=== PATIENT | male | born 1955 | race Caucasian/White ===

== ENCOUNTER 2019-04-05 23:01 | Inpatient (IN) | payer OTHER ==
[~2019-04-05] VITALS: Ht 180.3 cm; Wt 134.7 kg
[2019-04-05 23:05] VITALS: BP_SYST 139
--- NOTE | 2019-04-05 23:11 | NUR ---
Patient triaged and placed in AMBULANCE GURNEY IN ER [address]. VSS and patient appears in no acute distress at this time. Accompanied by EMT , awaiting available bed, and MD notified of need for MSE.
--- NOTE | 2019-04-06 00:10 | NUR ---
Patient to ER bed 6 to gown for evaluation. Side rails up. Report given to Harvey MCWILLIAMS.
--- NOTE | 2019-04-06 00:19 | NUR ---
Dr. Monzon bedside for Pt eval
--- NOTE | 2019-04-06 00:25 | NUR ---
Pt BIBA to ED C/O suprapubic catheter malfunction. Per paramedics, patient's suprapubic catheter is leaking at the site. No pain reported. No associated symptoms reported. Denies kidney history. Otherwise no fever, nausea, vomiting, back pain, abdominal pain, chest pain, shortness of breath, diarrhea. No other injuries and or complaints noted. VSS no s/s of acute distress. Resting on gurney with rails up
[2019-04-06 01:16] LABS: BASOPHILS # (AUTO) 0.1 K/uL (0.0-0.2); BASOPHILS % (AUTO) 0.9 % (0.0-2.0); EOSINOPHILS # (AUTO) 0.4 K/uL (0.0-0.4); EOSINOPHILS % (AUTO) 4.3 % (0.0-4.0); HEMATOCRIT 38.2 % (36-54); HEMOGLOBIN 12.9 g/dL (14.0-18.0); LYMPHOCYTES # (AUTO) 2.2 K/uL (1.0-5.5); LYMPHOCYTES % (AUTO) 22.2 % (20.5-51.5); MEAN CORPUSCULAR HEMOGLOBIN 34 pg (27-31); MEAN CORPUSCULAR HGB CONC 34 % (32-36); MEAN CORPUSCULAR VOLUME 100 fL (79.0-98.0); MONOCYTES # (AUTO) 0.7 K/uL (0.0-1.0); MONOCYTES % (AUTO) 6.7 % (1.7-9.3); NEUTROPHILS # (AUTO) 6.5 K/uL (1.8-7.7); NEUTROPHILS % (AUTO) 65.9 % (40.0-70.0); PLATELET COUNT (AUTO) 292 K/uL (130-430); RED BLOOD CELL COUNT(AUTO) 3.81 MIL/uL (4.2-6.2); RED CELL DISTRIBUTION WIDTH 13.7 % (9.0-15.0); WHITE BLOOD COUNT (AUTO) 9.8 K/uL (4.8-10.8)
[2019-04-06 01:20] LABS: CALCIUM 8.6 mg/dL (8.4-11.0); CREATININE 0.69 mg/dL (0.55-1.30); POTASSIUM 4.3 mmol/L (3.5-5.1)
[2019-04-06 01:25] LABS: PROTHROMBIN TIME 9.8 SECS (9.5-12.5)
[2019-04-06 01:26] LABS: ALBUMIN 2.8 g/dL (3.4-4.8); TOTAL BILIRUBIN 0.1 mg/dL (0.0-1.0)
[2019-04-06] MEDS ORDERED: KETOROLAC TROMETHAMINE 30 MG VIAL IVP ONE (01:30)
[2019-04-06] MEDS ORDERED: LEVOFLOXACIN 500 MG/D5W 100 ML IV ONE (02:00)
[2019-04-06 02:03] LABS: BILIRUBIN,URINE NEGATIVE (NEGATIVE); CLARITY/URINE CLOUDY (CLEAR); COLOR,URINE YELLOW (YELLOW); GLUCOSE,URINE NEGATIVE (NEGATIVE); KETONES,URINE NEGATIVE (NEGATIVE); LEUKOCYTE ESTERASE ,URINE 3+ (NEGATIVE); NITRITE, URINE NEGATIVE (NEGATIVE); PH,URINE >=9.0 (5.0-8.0); PROTEIN URINE TRACE (NEGATIVE); UROBILINOGEN,URINE 0.2 (0.2-1.0)
[2019-04-06 02:04] LABS: BLOOD, URINE TRACE (NEGATIVE)
[2019-04-06] MEDS ORDERED: INSU100I4 SQ (02:13)
[2019-04-06] MEDS ORDERED: MOM PO (02:13)
[2019-04-06] MEDS ORDERED: SSREG SUBCUT (02:13)
[2019-04-06] MEDS ORDERED: MULT-1117 PO (02:13)
[2019-04-06] MEDS ORDERED: CARV12.548 PO (02:13)
[2019-04-06] MEDS ORDERED: BACL20TA PO (02:13)
[2019-04-06] MEDS ORDERED: ACET325T53 PO (02:13)
[2019-04-06] MEDS ORDERED: OXYB5TAB PO (02:13)
[2019-04-06] MEDS ORDERED: NEU300 PO (02:13)
[2019-04-06] MEDS ORDERED: CRAN450C PO (02:13)
[2019-04-06] MEDS ORDERED: METF1000 PO (02:13)
[2019-04-06] MEDS ORDERED: AMIN30LI2 PO (02:13)
[2019-04-06] MEDS ORDERED: INSU100V11 SQ (02:13)
[2019-04-06] MEDS ORDERED: LIP20 PO (02:13)
[2019-04-06] MEDS ORDERED: MELA3TAB PO (02:13)
[2019-04-06] MEDS ORDERED: GLUCOSE GEL PO (02:13)
[2019-04-06] MEDS ORDERED: GLIP10TA3 PO (02:13)
[2019-04-06] MEDS ORDERED: ASA81 PO (02:13)
--- NOTE | 2019-04-06 02:14 | NUR ---
Medication reconciliation completed with information provided by [facility]. Any prior medication reconciliation on file was reviewed and corrected.
[2019-04-06 02:37] LABS: BACTERIA,URINE MANY /HPF (None Seen); WBC,URINE 20-50 /HPF (0-3)
[2019-04-06 02:38] LABS: TRIPLE PHOSPHATE CRYSTAL,UR 0-10 /HPF (None Seen); URINE AMORPHOUS PHOSPHATES 2+ /HPF (None Seen)
--- NOTE | 2019-04-06 03:00 | NUR ---
Provided perineal care and linen change, well tolerated
--- NOTE | 2019-04-06 03:39 | NUR ---
Patient will be admitted to care of Dr. Mckenna. Admitted to Med Surg unit. Will go to room 110B. Belongings list completed. Summary report printed. Report will be given at bedside.
--- NOTE | 2019-04-06 03:39 | NUR ---
ADMISSION: The patient, AZUL ZAPIEN, 63 y/o, M admitted by MARIANN GROSSMAN MD,with the diagnosis of malfunction of the suprapubic catheter and UTI ,to 110 B , was given written information regarding hospital policies, unit procedures and contact persons.
--- NOTE | 2019-04-06 03:51 | NUR ---
PAGED DOCTOR GROSSMAN
--- NOTE | 2019-04-06 04:00 | NUR ---
Opening notes Patient is alert and oriented x4. No signs of distress noted. Breathing even and unlabored. IV patent and intact. Patient has skin discoloration/denuded skin on buttocks. Photographs taken, but unable to be printed. Photos left on memory card. Oriented patient to room and call light. Patient able to demonstrate how to use call light. Provided patient with ice water. No other needs. Call light with the patient. Safety precautions in place.
[2019-04-06 04:01] VITALS: BP_SYST 117
[2019-04-06] MEDS ORDERED: ACETAMINOPHEN 325 MG TABLET PO PRN (04:15)
[2019-04-06] MEDS ORDERED: GLUCOSE 15 GM GEL (in 37.5 GM TUBE) PO PRN (04:15)
[2019-04-06] MEDS ORDERED: BACLOFEN 10 MG TABLET PO PRN (04:15)
[2019-04-06] MEDS ORDERED: MILK OF MAGNESIA 30 ML UDC PO SCH (04:15)
[2019-04-06] MEDS: D5/0.45 NS 1,000 ML IV SCH (05:25)
--- NOTE | 2019-04-06 05:32 | NUR ---
CONSULT: CONSULT PAGED FOR DR. LORI LIEBERMAN I SPOKE WITH CHA RUSSO REASON FOR CONSULT: MALFUNCTION SUPRAPUBIC CATH/UROLOGY REQUESTING CONSULT: DR. GROSSMAN BOX MAKER PHONE NUMBER: [phone]
--- NOTE | 2019-04-06 05:35 | NUR ---
CONSULT: CONSULT CALLED FOR DR. PHILIPPE IRIZARRY FOREST PRODUCTS TEACHER THIS MORNING I SPOKE WITH CHA RUSSO REASON FOR CONSULT: MALFUNCTION SUPRAPUBIC CATH/UROLOGY REQUESTING CONSULT: DR. GROSSMAN MERCHANDISER RETAIL REPRESENTATIVE PHONE NUMBER: [phone]
--- NOTE | 2019-04-06 06:32 | NUR ---
Closing notes Patient is resting comfortably in bed. No signs of distress noted. Breathing even and unlabored. IV patent and intact, infusing fluids. Call light with the patient. Safety precautions in place. Will endorse care to day shift RN.
[2019-04-06 08:17] VITALS: BP_SYST 157
[2019-04-06] MEDS: GABAPENTIN 300 MG CAPSULE PO SCH ×3 (08:19→21:30)
[2019-04-06] MEDS: OXYBUTYNIN CHLORIDE 5 MG TABLET PO SCH ×2 (08:19→21:27)
[2019-04-06] MEDS: MULTIVITAMINS TAB 1 TABLET PO SCH (08:19)
[2019-04-06] MEDS: metFORMIN HCL 500 MG TABLET PO SCH ×2 (08:20→17:50)
[2019-04-06] MEDS: ASPIRIN 81 MG TAB.CHEW PO SCH (08:20)
[2019-04-06] MEDS: CARVEDILOL 12.5 MG TABLET (COREG) PO SCH ×2 (08:21→21:29)
[2019-04-06] MEDS: CRANBERRY FRUIT 425 MG PO SCH (09:00)
[2019-04-06] MEDS: PROTEIN HYDROLYS PO SCH (09:00)
[2019-04-06] MEDS: AMINO ACIDS PO SCH (09:00)
[2019-04-06] MEDS ORDERED: CIPROFLOXACIN LACT 400 MG/D5W 200 ML IV ONE (09:45)
--- NOTE | 2019-04-06 10:03 | NUR ---
Nutrition Update Sameer Scale 14 noted. Pt admitted for UTI, supra-pubic catheter malfunction. Diet: 2 gm Na BMI: 41.6 kg/m2 RD to follow per nutrition care standards.
[2019-04-06] MEDS: INSULIN GLARGINE 100 UNITS/ML 10 ML VIAL SQ SCH ×2 (10:50→22:04)
[2019-04-06] MEDS ORDERED: INSULIN ASPART 100 UNITS/ML, 10 ML VIAL (NovoLOG) SUBCUT PRN (11:00)
[2019-04-06] MEDS: MORPHINE 2 MG/ML INJ. SYRINGE IVP PRN ×3 (11:39→22:01)
[2019-04-06] MEDS: INSULIN LISPRO SLIDING SCALE 100 UNITS/ML VIAL (humaLOG) SUBCUT PRN ×3 (12:05→22:08)
[2019-04-06 12:45] VITALS: BP_SYST 142
--- NOTE | 2019-04-06 13:12 | NUR ---
CONSULTATION PAGED/CALLED Reason for Consultation: SUPRAPUBIC CATHETER MALFUNCTION Person Who was Notified: ARTHUR Consulting Physician: DR [employer] Industrial Economics Teacher Specialty: UROLOGIST Ordering Physician: DR SEN
--- NOTE | 2019-04-06 14:20 | NUR ---
MD visit: Seen by Dr Lovell and changed the supra pubic cath with a urine output of 100ml.
[2019-04-06 16:15] VITALS: BP_SYST 146
--- NOTE | 2019-04-06 16:27 | NUR ---
rounds: patient resting on bed. no distress noted. complained of abdominal pain. pain meds given thru ivp.
--- NOTE | 2019-04-06 17:55 | NUR ---
notes: patient having dinner meal. no leakage observed from the supra pubic cath.
--- NOTE | 2019-04-06 18:55 | NUR ---
Closing notes: Patient sleeping. Stable. Needs attended. Supra pubic cath draining by gravity. Call light within reach. Safety measures in placed. Report will be given to able seaman.
--- NOTE | 2019-04-06 20:00 | NUR ---
note Received report form day shift, patient in bed resting, alert and oriented x4, in no acute distress, respiration even and unlabored, no SOB noted, denies pain at the present, suprapubic cathetr draining well by gravity, with yellow urine output, needs attended to, will continue to monitor.
[2019-04-06] MEDS: ATORVASTATIN 20 MG TABLET PO SCH (21:28)
[2019-04-06] MEDS: MELATONIN 3 MG TABLET PO SCH (21:30)
[2019-04-06] MEDS: CIPROFLOXACIN LACT 400 MG/D5W 200 ML IV SCH (21:34)
--- NOTE | 2019-04-06 22:00 | NUR ---
note, all due meds administered per order, no adverse effect noted, remains alert and oriented x4, no SOB, complaint of abdominal pain 10/10, bowel sounds present in all four quadrant, pain meds given via IVP as needed, , no adverse reaction. Will continue to monitor. .
[2019-04-07] VITALS: BP_SYST 116
--- NOTE | 2019-04-07 | NUR ---
note sleeping at this time, respiration even and unlabored, no complaint of pain or any discomfort, quiet environment provided, safety measures provided, IV continues to infuse well, no swelling, bleeding or redness noted at the site, will cont
--- NOTE | 2019-04-07 02:00 | NUR ---
note no distress noted at this time,
--- NOTE | 2019-04-07 04:00 | NUR ---
note, in no distress, will continue to monitor for safety and needs,
--- NOTE | 2019-04-07 07:30 | NUR ---
OPENING NOTE Patient resting in the bed. No acute distress. AAO x 4. No c/o pain at this time. Skin warm and dry to touch. IV intact to LAC, no redness, no swelling, no drainage. On D5 1/2NS at 75ml/hr, infusing well. Discussed the safety issue, use call light when needs help, and plan of care, verbally understanding. Suprapubic catheter intact, drain gravity with yanely urine. Safety measure maintained. Call light within reached. Bed in low position, side rails up, bed alarm on. Will continue to monitor.
[2019-04-07 08:00] VITALS: BP_SYST 123
[2019-04-07 08:06] LABS: BASOPHILS # (AUTO) 0.1 K/uL (0.0-0.2); BASOPHILS % (AUTO) 0.9 % (0.0-2.0); EOSINOPHILS # (AUTO) 0.4 K/uL (0.0-0.4); EOSINOPHILS % (AUTO) 5.1 % (0.0-4.0); HEMATOCRIT 34.4 % (36-54); HEMOGLOBIN 11.7 g/dL (14.0-18.0); LYMPHOCYTES # (AUTO) 1.6 K/uL (1.0-5.5); MEAN CORPUSCULAR HEMOGLOBIN 34 pg (27-31); MEAN CORPUSCULAR HGB CONC 34 % (32-36); MEAN CORPUSCULAR VOLUME 100 fL (79.0-98.0); MONOCYTES # (AUTO) 0.6 K/uL (0.0-1.0); MONOCYTES % (AUTO) 7.2 % (1.7-9.3); NEUTROPHILS # (AUTO) 5.9 K/uL (1.8-7.7); NEUTROPHILS % (AUTO) 67.8 % (40.0-70.0); PLATELET COUNT (AUTO) 244 K/uL (130-430); RED BLOOD CELL COUNT(AUTO) 3.45 MIL/uL (4.2-6.2); RED CELL DISTRIBUTION WIDTH 13.7 % (9.0-15.0); WHITE BLOOD COUNT (AUTO) 8.7 K/uL (4.8-10.8)
[2019-04-07] MEDS: metFORMIN HCL 500 MG TABLET PO SCH ×2 (08:06→17:56)
[2019-04-07] MEDS: MORPHINE 2 MG/ML INJ. SYRINGE IVP PRN ×4 (08:07→22:59)
[2019-04-07] MEDS: D5/0.45 NS 1,000 ML IV SCH (08:08)
[2019-04-07 08:37] LABS: ALBUMIN 2.5 g/dL (3.4-4.8); CALCIUM 8.4 mg/dL (8.4-11.0); CREATININE 0.73 mg/dL (0.55-1.30); POTASSIUM 4.1 mmol/L (3.5-5.1); TOTAL BILIRUBIN 0.3 mg/dL (0.0-1.0)
[2019-04-07] MEDS: PROTEIN HYDROLYS PO SCH (09:00)
[2019-04-07] MEDS: AMINO ACIDS PO SCH (09:00)
[2019-04-07] MEDS: CRANBERRY FRUIT 425 MG PO SCH (09:00)
[2019-04-07] MEDS: CIPROFLOXACIN LACT 400 MG/D5W 200 ML IV SCH ×2 (10:24→20:59)
[2019-04-07] MEDS: CARVEDILOL 12.5 MG TABLET (COREG) PO SCH ×2 (10:25→20:47)
[2019-04-07] MEDS: GABAPENTIN 300 MG CAPSULE PO SCH ×3 (10:25→20:46)
[2019-04-07] MEDS: ASPIRIN 81 MG TAB.CHEW PO SCH (10:26)
[2019-04-07] MEDS: OXYBUTYNIN CHLORIDE 5 MG TABLET PO SCH ×2 (10:26→20:48)
--- NOTE | 2019-04-07 10:28 | NUR ---
AM SCHEDULE MED GIVEN Patient resting in the bed. No acute distress. Am schedule meds given, tolerated well. IV intact, IVF infusing well. Suprapubic catheter intact, drain gravity. Safety measure maintained. Bed locked in low position, side rails up, bed alarm on. Call light within reached. Continue to monitor.
[2019-04-07] MEDS: INSULIN GLARGINE 100 UNITS/ML 10 ML VIAL SQ SCH ×2 (10:29→20:54)
[2019-04-07] MEDS: MULTIVITAMINS TAB 1 TABLET PO SCH (10:30)
[2019-04-07 12:00] VITALS: BP_SYST 112
--- NOTE | 2019-04-07 12:15 | NUR ---
DE=899 Humalog insulin 2 units given per sliding scale. No acute distress. Safety measure maintained. Call light within reached. Bed locked in low position, side rails up, bed alarm on. Continue to monitor.
[2019-04-07] MEDS: INSULIN LISPRO SLIDING SCALE 100 UNITS/ML VIAL (humaLOG) SUBCUT PRN ×3 (12:25→20:52)
--- NOTE | 2019-04-07 13:39 | NUR ---
MORPHINE GIVEN Patient c/o lower abdomen pain 03/20, Morphine 3mg IVP given as ordered. No acute distress. Safety measure maintained. Call light within reached. Bed locked in low position, side rails up, bed alarm on. Continue to monitor.
--- NOTE | 2019-04-07 15:20 | NUR ---
ROUND Patient resting in the bed and watching TV. No acute distress. IV intact, IVF infusing well. Suprapubic catheter intact, drain gravity. Safety measure maintained. Call light within reached. Bed locked in low position, side rails up, bed alarm on. Continue to monitor.
--- NOTE | 2019-04-07 16:55 | NUR ---
Dietitian Recommendations * Recommend 2 gm Na, CCHO diet w/ Glucerna BID (ONS provides 440 kcal/day, 20 gm protein/day) LUIS DALAL Please refer to Nutrition Assessment for details. Addendum: 04/07/19 at [address] Amended: Links added.
[2019-04-07 16:59] VITALS: BP_SYST 119
--- NOTE | 2019-04-07 17:00 | NUR ---
ROUND Patient resting in the bed. No acute distress. IV intact, IVF infusing well. Suprapubic catheter intact, drain gravity. Safety measure maintained. Call light within reached. Bed locked in low position, side rails up, bed alarm on. Continue to monitor.
--- NOTE | 2019-04-07 18:54 | NUR ---
CLOSING NOTE Patient resting in the bed. No acute distress. Pain med given as needed. Skin warm and dry to touch. IV intact to LAC, no redness, no swelling, no drainage. On D5 1/2NS at 75ml/hr, infusing well. All needs met and attended. Suprapubic catheter intact, drain gravity with yanely urine. Safety measure maintained. Call light within reached. Bed in low position, side rails up, bed alarm on. Will endorse to night nurse.
[2019-04-07] MEDS: ATORVASTATIN 20 MG TABLET PO SCH (20:47)
[2019-04-07] MEDS: MELATONIN 3 MG TABLET PO SCH (20:54)
[2019-04-07 23:21] VITALS: BP_SYST 132
--- NOTE | 2019-04-08 01:30 | NUR ---
pt requested to move to another room charge nurse and another nurse escorted the pt. the pt noticed his black purse with his personal items inside searched pt room brought over furniture from his previous room... charge nurse checked for pts items again , items were not found, encouraged pt to call his family to see it was brought home.
[2019-04-08] MEDS: MORPHINE 2 MG/ML INJ. SYRINGE IVP PRN ×4 (03:50→21:08)
[2019-04-08] MEDS: D5/0.45 NS 1,000 ML IV SCH ×2 (06:05→18:45)
[2019-04-08] MEDS: INSULIN LISPRO SLIDING SCALE 100 UNITS/ML VIAL (humaLOG) SUBCUT PRN ×4 (06:29→21:11)
--- NOTE | 2019-04-08 07:24 | NUR ---
report given to DIPIKA RN made aware pt's claim of missing black bag night charge nurse aware using SBAR allowed time for questioning pt is AAO denies pain no changes noted in pt's status
[2019-04-08 07:40] VITALS: BP_SYST 124
[2019-04-08] MEDS: CRANBERRY FRUIT 425 MG PO SCH (09:00)
[2019-04-08] MEDS: AMINO ACIDS PO SCH (09:00)
[2019-04-08] MEDS: PROTEIN HYDROLYS PO SCH (09:00)
[2019-04-08] MEDS: OXYBUTYNIN CHLORIDE 5 MG TABLET PO SCH ×2 (09:06→21:06)
[2019-04-08] MEDS: MULTIVITAMINS TAB 1 TABLET PO SCH (09:06)
[2019-04-08] MEDS: GABAPENTIN 300 MG CAPSULE PO SCH ×3 (09:06→21:06)
[2019-04-08] MEDS: metFORMIN HCL 500 MG TABLET PO SCH ×2 (09:06→18:28)
[2019-04-08] MEDS: INSULIN GLARGINE 100 UNITS/ML 10 ML VIAL SQ SCH ×2 (09:09→21:10)
[2019-04-08] MEDS: CARVEDILOL 12.5 MG TABLET (COREG) PO SCH ×2 (09:10→21:07)
--- NOTE | 2019-04-08 09:10 | NUR ---
THE BLACK BAG THAT PATIENT CLAIMED LOST WAS FOUND IN THE PATIENT'S BED.
[2019-04-08] MEDS: CIPROFLOXACIN LACT 400 MG/D5W 200 ML IV SCH (09:27)
[2019-04-08] MEDS: ASPIRIN 81 MG TAB.CHEW PO SCH (09:27)
--- NOTE | 2019-04-08 11:38 | NUR ---
KQ=910 Humalog insulin 4 units given per sliding scale for WI=757. No acute distress. Safety measure maintained. Call light within reached. Bed locked in low position, side rails up, bed alarm on. Continue to monitor.
[2019-04-08 12:07] VITALS: BP_SYST 144
--- NOTE | 2019-04-08 12:51 | NUR ---
SEEN AND EXAMINED BY LUISANA MCDOWELL Per Dr. Rosa, patient okay to discharge back to SNF with antibiotic and follow up the urine culture result.
--- NOTE | 2019-04-08 14:25 | NUR ---
RESTING Patient resting in the bed and watching TV. No acute distress. IV intact, IVF infusing well. Safety measure maintained. Call light within reached. Bed locked in low position, side rails up, bed alarm on. Continue to monitor.
--- NOTE | 2019-04-08 15:56 | NUR ---
ID MD DR LUISANA SANDOVAL WAS CALLED RE: PT HAS MDROOF URINE. SPOKE TO MAYRA
--- NOTE | 2019-04-08 16:05 | NUR ---
POSITIVE URINE CULTURE Called and reported to Jono Lackey about urine culture result, Proteus Mirabilis MDRO of urine. Reported to Dr. Rosa, [facility] is resistance and allergy to Penicillins. Dr. Rosa with order of Gentamicin per pharmacy dose for 5 days. Order repeat and okay to
[2019-04-08 16:48] VITALS: BP_SYST 149
[2019-04-08] MEDS: GENTAMICIN SULFATE 160 MG in NS 100 ML IV SCH (18:28)
[2019-04-08 20:19] VITALS: BP_SYST 143
--- NOTE | 2019-04-08 21:00 | NUR ---
DITROPIN 2.5 MG PO administer for blader spasm & helpful , per patient .
[2019-04-08] MEDS: ATORVASTATIN 20 MG TABLET PO SCH (21:07)
[2019-04-08] MEDS: MELATONIN 3 MG TABLET PO SCH (21:12)
--- NOTE | 2019-04-08 21:59 | NUR ---
Suprapubic urinary catheter patent free flow of yellow yanely color urine noted to BSDB / .
--- NOTE | 2019-04-08 22:02 | NUR ---
MORPHINE SULFATE 3 MG IVP administer for general pain / off loading & assist for position change on schedule also helpful / .
[2019-04-09] VITALS (7 sets, daily range): BP systolic 16–146
[2019-04-09] MEDS: GENTAMICIN SULFATE 160 MG in NS 100 ML IV SCH (01:41)
--- NOTE | 2019-04-09 02:33 | NUR ---
GENTAMICIN 160 MG IVPB administer as ordered no allergic reaction noted chest movement symmetrical .
--- NOTE | 2019-04-09 05:13 | NUR ---
Hourly Rounding patient Resting HOB elevated chest movement symmetrical call contreras with patient no complaints made .
--- NOTE | 2019-04-09 08:00 | NUR ---
am rounds: Oriented x4. On contact isolation for MDRO proteus Mirabilis urine. Call light within reach, safety precautions maintained.
[2019-04-09] MEDS: metFORMIN HCL 500 MG TABLET PO SCH ×2 (08:14→16:59)
[2019-04-09] MEDS: ASPIRIN 81 MG TAB.CHEW PO SCH (08:15)
[2019-04-09] MEDS: GABAPENTIN 300 MG CAPSULE PO SCH ×3 (08:15→20:35)
[2019-04-09] MEDS: OXYBUTYNIN CHLORIDE 5 MG TABLET PO SCH ×2 (08:15→20:36)
[2019-04-09] MEDS: MULTIVITAMINS TAB 1 TABLET PO SCH (08:15)
[2019-04-09] MEDS: INSULIN GLARGINE 100 UNITS/ML 10 ML VIAL SQ SCH ×2 (08:16→20:35)
[2019-04-09] MEDS: CARVEDILOL 12.5 MG TABLET (COREG) PO SCH ×2 (08:18→20:36)
[2019-04-09] MEDS: MORPHINE 2 MG/ML INJ. SYRINGE IVP PRN ×4 (08:30→22:19)
[2019-04-09] MEDS: CRANBERRY FRUIT 425 MG PO SCH (09:00)
[2019-04-09] MEDS: AMINO ACIDS PO SCH (09:00)
[2019-04-09] MEDS: PROTEIN HYDROLYS PO SCH (09:00)
--- NOTE | 2019-04-09 10:22 | NUR ---
IV start: Started Gauge 22 on the right forearm. Old Jamar removed, no bleeding noted. IV fluids resumed.
--- NOTE | 2019-04-09 10:23 | NUR ---
MD rounds: Seen by Dr. Porsha Rosa. Gentamycin frequency will be changed to Q24 for 4 days starting today. Patient wants to go back to SNF.
[2019-04-09] MEDS: D5/0.45 NS 1,000 ML IV SCH (11:15)
[2019-04-09] MEDS: INSULIN LISPRO SLIDING SCALE 100 UNITS/ML VIAL (humaLOG) SUBCUT PRN (11:15)
[2019-04-09] MEDS: NS IV SCH (11:57)
[2019-04-09] MEDS: GENTAMICIN SULFATE IV SCH (11:57)
--- NOTE | 2019-04-09 12:04 | NUR ---
Discharge Planning: DCP faxed referral to [facility] (f [phone] p [phone]) DCP to follow up. Addendum: 04/09/19 at 1240 by Bina Cho DP [facility] (f [phone] p [phone]) per Derke tay accepted back to [facility] DCP made CM aware. Addendum: 04/09/19 at 1242 by Bina Cho DP DCP made nurse aware also a DC order needed. Addendum: 04/09/19 at 1510 by Bina BACA [facility] (f [phone] p [phone]) RM [facility], [facility] ([phone]) 6:30pm P/U Bariatric available. Nurse made aware patient packet taken to nurse station.
--- NOTE | 2019-04-09 17:32 | NUR ---
Family notification: Left voice message with Cris Cheung and Sumaya Bansal .
--- NOTE | 2019-04-09 18:04 | NUR ---
Facility Communication: Spoke with Joan at [facility], they will not be able to take patient back because they do not administer IV antibiotics in the facility. Will inform MD Addendum: 04/09/19 at 1807 by Gina Garcia RN Ambulance picked edge sewing machine operator with [facility] is cancelled. Spoke with Cait.
[2019-04-09] MEDS: ATORVASTATIN 20 MG TABLET PO SCH (20:35)
[2019-04-09] MEDS: MELATONIN 3 MG TABLET PO SCH (20:36)
--- NOTE | 2019-04-09 22:15 | NUR ---
SUPRAPUBIC wright catheter patent free flow of yanely yellow color urine noted to BS[facility] .
--- NOTE | 2019-04-10 | NUR ---
ASSIST ENCOURAGE OFF LOADING REPOSITION & TURNING ON SCHEDULE tolerate no SOB noted call contreras with patient .
--- NOTE | 2019-04-10 00:15 | NUR ---
BSG BLOOD SUGAR GLUCOSE 134 mg dl no sliding scale insulin administer per MD .
[2019-04-10 02:41] VITALS: BP_SYST 112
--- NOTE | 2019-04-10 03:34 | NUR ---
Hourly Rounding Patient Resting HOB elevated no s/sx of DIABETIC reaction skin dry warm chest movement symmetrical .
--- NOTE | 2019-04-10 04:14 | NUR ---
MORPHINE SULFATE 3 MG IVP administer for general pain 02/17 & helpful .
[2019-04-10] MEDS: D5/0.45 NS 1,000 ML IV SCH ×3 (06:41→22:34)
[2019-04-10 07:50] VITALS: BP_SYST 130
--- NOTE | 2019-04-10 08:00 | NUR ---
OPENING NOTES, RECEIVED PT IN BED, PT IS AAOX4, DENIES PAIN. NO SOB, NO RESP DISTRESS. SAFETY PRECAUTION IN PLACE. CALL LIGHT IN REACH. BED IN LOW POSITION. BED ALARM ON. WILL CONT TO MONITOR.
[2019-04-10] MEDS: MORPHINE 2 MG/ML INJ. SYRINGE IVP PRN ×4 (08:26→22:34)
[2019-04-10] MEDS: MULTIVITAMINS TAB 1 TABLET PO SCH (08:30)
[2019-04-10] MEDS: metFORMIN HCL 500 MG TABLET PO SCH ×2 (08:30→17:04)
[2019-04-10] MEDS: CARVEDILOL 12.5 MG TABLET (COREG) PO SCH ×2 (08:30→20:45)
[2019-04-10] MEDS: ASPIRIN 81 MG TAB.CHEW PO SCH (08:30)
[2019-04-10] MEDS: OXYBUTYNIN CHLORIDE 5 MG TABLET PO SCH ×2 (08:30→20:42)
[2019-04-10] MEDS: GABAPENTIN 300 MG CAPSULE PO SCH ×3 (08:31→20:42)
[2019-04-10] MEDS: CRANBERRY FRUIT 425 MG PO SCH (08:38)
[2019-04-10] MEDS: INSULIN GLARGINE 100 UNITS/ML 10 ML VIAL SQ SCH ×2 (08:38→20:50)
[2019-04-10] MEDS: AMINO ACIDS PO SCH (08:38)
[2019-04-10] MEDS: PROTEIN HYDROLYS PO SCH (08:38)
--- NOTE | 2019-04-10 10:17 | NUR ---
COMM. WITH [facility]: PER TANYA, CHARGE NURSE, THEY DONT ACCEPT PT WITH IV ANTIBIOTICS. PT HAS ORDERS TO DC TO SNF WITH 3 MORE DAYS OF IV ABX.
[2019-04-10] MEDS: GENTAMICIN SULFATE IV SCH (11:42)
[2019-04-10] MEDS: NS IV SCH (11:42)
[2019-04-10] MEDS: INSULIN LISPRO SLIDING SCALE 100 UNITS/ML VIAL (humaLOG) SUBCUT PRN ×3 (11:48→20:57)
[2019-04-10 13:16] VITALS: BP_SYST 147
--- NOTE | 2019-04-10 16:00 | NUR ---
PT IN BED, NO C/O PAIN, NO SOB, IV FLUIDS INFUSING WELL. SAFETY PRECAUTION IN PLACE.
[2019-04-10 17:03] VITALS: BP_SYST 118
--- NOTE | 2019-04-10 18:34 | NUR ---
CLOSING NOTES, PT HAS BEEN STABLE THE WHOLE SHIFT, PT NOT DISCHARGE TO SNF DUE TO SNF NOT ACCEPTING IV ANTIBIOTICS. PT TURNED AND REPOSITIONED. GIVEN PAIN MEDS ORDERED. BLOOD SUGAR CHECKED AND GIVEN SLIDING SCALE INSULING. WILL ENDORSE TO NIGHT NURSE.
--- NOTE | 2019-04-10 19:25 | NUR ---
OPENING NOTE RECEIVED CARE OF PT. PT IS AAOX4, RESTING IN BED, NO S/S OF ACUTE DISTRESS. PT DENIES PAIN AT THIS TIME. IV IS INTACT AND INFUSING D51/2NS AT 75 CC/HR. SUPRAPUBIC CATHETER IS INTACT AND DRAINING TO GRAVITY. PT ORIENTED TO USE OF CALL LIGHT AND ENCOURAGED TO CALL FOR ANY ASSISTANCE. CONTACT PRECAUTIONS OBSERVED. SAFETY PRECAUTIONS ARE IN PLACE: BED LOCKED IN LOWEST POSITION, SIDE RAILS UP X2, CALL LIGHT WITH PT, BED ALARM ON. WILL MONITOR.
[2019-04-10 20:00] VITALS: BP_SYST 169
[2019-04-10] MEDS: ATORVASTATIN 20 MG TABLET PO SCH (20:45)
[2019-04-10] MEDS: MELATONIN 3 MG TABLET PO SCH (20:50)
--- NOTE | 2019-04-10 20:57 | NUR ---
ACCUCHECK BLOOD SUGAR OF 224, 4 UNITS OF HUMALOG INSULIN GIVEN PER SLIDING SCALE.
--- NOTE | 2019-04-10 22:34 | NUR ---
PAIN/MORPHINE PT REPORTING SEVERE BLADDER PAIN. MORPHINE 3 MG IVP ADMINISTERED ORDERED. MEDICATION ACTION AND POTENTIAL SIDE EFFECTS EXPLAINED. PT VERBALIZED UNDERSTANDING. SAFETY AND CONTACT PRECAUTIONS MAINTAINED. WILL MONITOR.
--- NOTE | 2019-04-11 00:34 | NUR ---
SLEEPING PT RESTING IN BED WITH EYES CLOSED. VISIBLE SYMMETRICAL RISE AND FALL OF CHEST TO ROOM AIR. NO S/S OF ACUTE DISTRESS. IVF ARE INFUSING AT ORDERED RATE. NO SIGN OF PAIN AT THIS TIME. SAFETY AND FALL PRECAUTIONS ARE IN PLACE. WILL MONITOR.
[2019-04-11 00:40] VITALS: BP_SYST 114
--- NOTE | 2019-04-11 02:06 | NUR ---
ROUNDS DR. SANDOVAL AT NURSES STATION. POC DISCUSSED. STATES PT CAN BE DISCHARGED ON IM GENTAMYCIN AT THE SAME DOSE, 480 MG.
--- NOTE | 2019-04-11 03:03 | NUR ---
RN ROUNDS: PT ASSISTED TO REPOSITION HIMSELF IN BED, AND IS NOW WATCHING TELEVISION. NO S/S OF ACUTE DISTRESS. RESPIRATIONS ARE UNLABORED, PT IS TOLERATING ROOM AIR WELL. YOUNG CATHETER IS INTACT AND DRAINING WELL TO GRAVITY. IV IS SALINE LOCKED. SAFETY PRECAUTIONS MAINTAINED. WILL MONITOR. Addendum: 04/11/19 at 0306 by Stephanie Carmichael RN WRONG PT, PLEASE DISREGARD.
--- NOTE | 2019-04-11 04:02 | NUR ---
SLEEPING PT RESTING IN BED WITH EYES CLOSED. VISIBLE SYMMETRICAL RISE AND FALL OF CHEST TO ROOM AIR. NO S/S OF ACUTE DISTRESS. PT SEEMS TO BE COMFORTABLE AT THIS TIME. SAFETY AND FALL PRECAUTIONS OBSERVED. WILL MONITOR.
[2019-04-11] MEDS: MORPHINE 2 MG/ML INJ. SYRINGE IVP PRN ×5 (04:49→23:03)
--- NOTE | 2019-04-11 04:49 | NUR ---
PAIN/MORPHINE PT REPORTING SEVERE BLADDER PAIN. MORPHINE 3 MG IVP ADMINISTERED ORDERED. PT BROUGHT FRESH WATER PER REQUEST. PT DENIES FURTHER NEEDS AT THIS TIME. SAFETY PRECAUTIONS MAINTAINED. WILL MONITOR.
[2019-04-11 06:40] LABS: BASOPHILS # (AUTO) 0.1 K/uL (0.0-0.2); BASOPHILS % (AUTO) 0.8 % (0.0-2.0); EOSINOPHILS # (AUTO) 0.4 K/uL (0.0-0.4); EOSINOPHILS % (AUTO) 4.9 % (0.0-4.0); HEMATOCRIT 34.3 % (36-54); HEMOGLOBIN 11.6 g/dL (14.0-18.0); LYMPHOCYTES # (AUTO) 1.5 K/uL (1.0-5.5); LYMPHOCYTES % (AUTO) 18.2 % (20.5-51.5); MEAN CORPUSCULAR HEMOGLOBIN 34 pg (27-31); MEAN CORPUSCULAR HGB CONC 34 % (32-36); MEAN CORPUSCULAR VOLUME 100 fL (79.0-98.0); MONOCYTES # (AUTO) 0.7 K/uL (0.0-1.0); NEUTROPHILS # (AUTO) 5.8 K/uL (1.8-7.7); NEUTROPHILS % (AUTO) 68.1 % (40.0-70.0); PLATELET COUNT (AUTO) 273 K/uL (130-430); RED BLOOD CELL COUNT(AUTO) 3.45 MIL/uL (4.2-6.2); RED CELL DISTRIBUTION WIDTH 13.6 % (9.0-15.0); WHITE BLOOD COUNT (AUTO) 8.5 K/uL (4.8-10.8)
--- NOTE | 2019-04-11 06:46 | NUR ---
CLOSING NOTE RECEIVED CARE OF PT. PT IS AAOX4, RESTING IN BED, NO S/S OF ACUTE DISTRESS. PT DENIES PAIN AT THIS TIME. IV IS INTACT AND INFUSING D51/2NS AT 75 CC/HR. SUPRAPUBIC CATHETER IS INTACT AND DRAINING TO GRAVITY. ACCUCHECK SHOWED BLOOD SUGAR OF 132, NO INSULIN COVERAGE PER SLIDING SCALE. CONTACT PRECAUTIONS OBSERVED. SAFETY PRECAUTIONS ARE IN PLACE: BED LOCKED IN LOWEST POSITION, SIDE RAILS UP X2, CALL LIGHT WITH PT, BED ALARM ON. ALL NEEDS MET DURING SHIFT. WILL CONTINUE TO MONITOR UNTIL PT CARE IS ENDORSED TO DAY SHIFT RN.
[2019-04-11 07:24] LABS: ALBUMIN 2.4 g/dL (3.4-4.8); CALCIUM 8.2 mg/dL (8.4-11.0); CREATININE 0.56 mg/dL (0.55-1.30); TOTAL BILIRUBIN 0.3 mg/dL (0.0-1.0)
[2019-04-11 07:41] VITALS: BP_SYST 145
--- NOTE | 2019-04-11 08:00 | NUR ---
OPENING NOTES, RECEIVED PT IN BED, PT IS AAOX4, DENIES PAIN, NO SOB, NO RESP DISTRESS. IV ACCESS INTACT AND PATENT. IV FLUIDS INFUSING WELL. SAFETY PRECAUTION IN PLACE. CALL LIGHT IN REACH. BED IN LOW POSITION. WILL CONT TO MONITOR.
[2019-04-11] MEDS: AMINO ACIDS PO SCH (09:00)
[2019-04-11] MEDS: PROTEIN HYDROLYS PO SCH (09:00)
[2019-04-11] MEDS: CRANBERRY FRUIT 425 MG PO SCH (09:00)
[2019-04-11] MEDS: OXYBUTYNIN CHLORIDE 5 MG TABLET PO SCH ×2 (09:06→20:10)
[2019-04-11] MEDS: GABAPENTIN 300 MG CAPSULE PO SCH ×3 (09:06→20:10)
[2019-04-11] MEDS: MULTIVITAMINS TAB 1 TABLET PO SCH (09:06)
[2019-04-11] MEDS: ASPIRIN 81 MG TAB.CHEW PO SCH (09:06)
[2019-04-11] MEDS: metFORMIN HCL 500 MG TABLET PO SCH ×2 (09:06→17:07)
[2019-04-11] MEDS: CARVEDILOL 12.5 MG TABLET (COREG) PO SCH ×2 (09:07→20:13)
[2019-04-11] MEDS: INSULIN GLARGINE 100 UNITS/ML 10 ML VIAL SQ SCH ×2 (09:13→20:16)
[2019-04-11] MEDS: GENTAMICIN SULFATE IV SCH (11:18)
[2019-04-11] MEDS: NS IV SCH (11:18)
--- NOTE | 2019-04-11 12:00 | NUR ---
SPOKE WITH TELEVISION NEWS VIDEO EDITOROJ HERNANDEZ OF [facility], ASKED HER TO CHECK IF THEY CAN DO IM GENTAMYCIN, SHE SAID SHE WILL CHECK WITH HER DON AND PHARMACIST. WILL FOLLOW UP LATER.
[2019-04-11 12:40] VITALS: BP_SYST 162
--- NOTE | 2019-04-11 13:01 | NUR ---
Nutrition F/U RD reviewed pt's current EMR including diet Hx, physician notes, nursing notes, pertinent labs/meds/procedures, care trends and care activity. Current Diet Order: CCHO 2gm Na w/ Glucerna Shake BID x 3 days Subjective information: Pt seen resting in bed at time of RD visit earlier today. Pt reported of feeling very sleepy, he reported of good appetite and stated that he has been tolerating Glucerna BID. Bed scale weight taken 04/11/19: 306.3 lb (+wt gain possibly d/t fluid retention and excessive calories from ONS). Per EMR, PO intake has been GOOD x 2 days. ONS may be discontinued d/t improved appetite and PO intake. Current PO intake: Good (93% average of 3 meals 04/10; 90% average of 3 meals 04/09) Estimated Energy Expenditure (kcals/day) 1819-3112 kcal/day (25-30 kcal/kg Adj IBW for wt loss, paraplegia) Estimated Protein Required (g/day) 58-72 gm/day (0.8-1 gm/kg Adj IBW for wt loss, paraplegia) Estimated Fluid Required (l/day) 1.8-2 L/day (1 ml/kcal/day for maintenance) Problem/Etiology/Signs/Symptoms Morbid obesity related to lower body immobility as evidenced by paraplegia, BMI: 41.6 kg/m2, and 173% of IBW. *ongoing Expected Outcomes/Goals - Monitor appetite and PO intakes w/ goal of pt meeting at least 75% of estimated nutritional needs, labs trending WNL, normal GI function, and skin integrity/wt maintenance Dietitian Recommendations * Recommend 2 gm Na, CCHO diet. * Discontinue ONS Glucerna BID. Follow Up Mod Risk: F/U in 3-5 days
--- NOTE | 2019-04-11 13:07 | NUR ---
Dietitian Recommendations * Recommend 2 gm Na, CCHO diet. * Discontinue ONS Glucerna BID. Please see nutrition f/u note for details. TINO, RD
--- NOTE | 2019-04-11 13:30 | NUR ---
CALLED WELDER PRODUCTION LINE COMBINATIONOJ HERNANDEZ OF [facility] TO FOLLOW UP , SHE SAID SHE WILL CHECK WITH PHARMACIST.
[2019-04-11] MEDS: D5/0.45 NS 1,000 ML IV SCH (14:41)
--- NOTE | 2019-04-11 15:40 | NUR ---
DR Tessie SANDOVAL HERE AND MD MADE AWARE THAT IM GENTAMYCIN CANT BE GIVEN IN THE SNF IT WILL REQUIRE 12 IM SHOTS FOR A DAYS DOSE. MD ORDERED TO JUST GIVE ABX IV AND KEEP PT HERE UNTIL 4 DOSES ARE GIVEN. PT WAS MADE AWARE.
[2019-04-11 16:59] VITALS: BP_SYST 144
--- NOTE | 2019-04-11 18:12 | NUR ---
Closing notes, Pt has been stable the whole am shift, no sob, no resp distress. iv abx given, pain meds given as requested. dc to snf order held for snf unable to give the im antibiotics. dr daniel navarrete and dr gamez are aware. pt will dc to snf after 4th dose of iv gentamycin. pt is aware. will endorse to night nurse.
--- NOTE | 2019-04-11 19:20 | NUR ---
OPENING NOTES, RECEIVED PT IN BED, PT IS AAOX4, DENIES PAIN AT THIS TIME. NO SOB, NO RESP DISTRESS. PT REPOSITIONED IN BED FOR COMFORT WITH ASSISTANCE FROM RN, CARLOS A. IVF ARE RUNNING AT ORDERED RATE. SUPRAPUBIC CATHETER IN DRAINING TO GRAVITY. SAFETY PRECAUTION IN PLACE. CALL LIGHT IN REACH. BED IN LOW POSITION. BED ALARM ON. WILL CONT TO MONITOR.
[2019-04-11 20:00] VITALS: BP_SYST 135
[2019-04-11] MEDS: MELATONIN 3 MG TABLET PO SCH (20:10)
[2019-04-11] MEDS: ATORVASTATIN 20 MG TABLET PO SCH (20:13)
[2019-04-11] MEDS: INSULIN LISPRO SLIDING SCALE 100 UNITS/ML VIAL (humaLOG) SUBCUT PRN (20:18)
--- NOTE | 2019-04-11 20:18 | NUR ---
ACCUCHECK BLOOD SUGAR OF 198, 2 UNITS OF HUMALOG GIVEN PER SLIDING SCALE.
--- NOTE | 2019-04-11 23:03 | NUR ---
PAIN/MORPHINE PT REPORTING SEVERE BLADDER PAIN. MORPHINE 3 MG IVP ADMINISTERED. NO S/S OF ACUTE DISTRESS. BREATHING IS UNLABORED TO ROOM AIR. SAFETY PRECAUTIONS OBSERVED. WILL MONITOR.
[2019-04-12 00:07] VITALS: BP_SYST 137
--- NOTE | 2019-04-12 01:15 | NUR ---
SLEEPING PT RESTING IN BED WITH EYES CLOSED. VISIBLE SYMMETRICAL RISE AND FALL OF CHEST TO ROOM AIR. NO S/S OF ACUTE DISTRESS. PT SEEMS TO BE COMFORTABLE AT THIS TIME. IVF INFUSING AT ORDERED RATE. SUPRAPUBIC CATHETER IS INTACT AND DRAINING TO GRAVITY. SAFETY AND FALL PRECAUTIONS OBSERVED. WILL MONITOR.
--- NOTE | 2019-04-12 03:38 | NUR ---
RESTING PT RESTING IN BED WITH EYES CLOSED. VISIBLE RISE AND FALL OF CHEST BILATERALLY TO ROOM AIR, UNLABORED BREATHING. NO S/S OF ACUTE DISTRESS. IVF INFUSING AT ORDERED RATE. CATHETER IS DRAINING WELL TO GRAVITY. PT APPEARS TO BE COMFORTABLE AT THIS TIME. SAFETY AND FALL PRECAUTIONS OBSERVED. WILL MONITOR.
[2019-04-12] MEDS: D5/0.45 NS 1,000 ML IV SCH (04:23)
[2019-04-12] MEDS: MORPHINE 2 MG/ML INJ. SYRINGE IVP PRN ×2 (04:33→09:42)
--- NOTE | 2019-04-12 06:34 | NUR ---
CLOSING NOTE RECEIVED CARE OF PT. PT IS AAOX4, RESTING IN BED, NO S/S OF ACUTE DISTRESS. PT DENIES PAIN AT THIS TIME. IV IS INTACT AND INFUSING D51/2NS AT 75 CC/HR. SUPRAPUBIC CATHETER IS INTACT AND DRAINING TO GRAVITY. ACCUCHECK SHOWED BLOOD SUGAR OF 110, NO INSULIN COVERAGE PER SLIDING SCALE. PT WAS REPOSITIONED WITH ASSISTANCE FROM CHARLINE HOWELL. SAFETY PRECAUTIONS ARE IN PLACE: BED LOCKED IN LOWEST POSITION, SIDE RAILS UP X2, CALL LIGHT WITH PT, BED ALARM ON. ALL NEEDS MET DURING SHIFT. WILL CONTINUE TO MONITOR UNTIL PT CARE IS ENDORSED TO DAY SHIFT RN.
[2019-04-12 07:30] VITALS: BP_SYST 131
--- NOTE | 2019-04-12 08:00 | NUR ---
OPENING NOTES, RECEIVED PT IN BED, PT IS AAOX4, DENIES PAIN AT THIS TIME. NO SOB, NO RESP DISTRESS. PT REPOSITIONED IN BED FOR COMFORT. IVF ARE RUNNING AT ORDERED RATE. SUPRAPUBIC CATHETER IN DRAINING TO GRAVITY. SAFETY PRECAUTION IN PLACE. CALL LIGHT IN REACH. BED IN LOW POSITION. BED ALARM ON. WILL CONT TO MONITOR.
[2019-04-12] MEDS: AMINO ACIDS PO SCH (09:00)
[2019-04-12] MEDS: CRANBERRY FRUIT 425 MG PO SCH (09:00)
[2019-04-12] MEDS: PROTEIN HYDROLYS PO SCH (09:00)
[2019-04-12] MEDS: MULTIVITAMINS TAB 1 TABLET PO SCH (09:33)
[2019-04-12] MEDS: ASPIRIN 81 MG TAB.CHEW PO SCH (09:34)
[2019-04-12] MEDS: metFORMIN HCL 500 MG TABLET PO SCH ×2 (09:34→17:20)
[2019-04-12] MEDS: GABAPENTIN 300 MG CAPSULE PO SCH ×2 (09:34→16:57)
[2019-04-12] MEDS: OXYBUTYNIN CHLORIDE 5 MG TABLET PO SCH (09:34)
[2019-04-12] MEDS: CARVEDILOL 12.5 MG TABLET (COREG) PO SCH (09:34)
[2019-04-12] MEDS: INSULIN GLARGINE 100 UNITS/ML 10 ML VIAL SQ SCH (09:47)
[2019-04-12 09:54] VITALS: BP_SYST 131
[2019-04-12] MEDS: NS IV SCH (10:15)
[2019-04-12] MEDS: GENTAMICIN SULFATE IV SCH (10:15)
--- NOTE | 2019-04-12 10:30 | NUR ---
SBAR REPORT GIVEN TO PRODUCTION BROACHER ELENA OF [facility]. ETA IS 1 PM.
[2019-04-12 11:30] VITALS: BP_SYST 162
[2019-04-12 11:46] VITALS: BP_SYST 154
[2019-04-12] MEDS: INSULIN LISPRO SLIDING SCALE 100 UNITS/ML VIAL (humaLOG) SUBCUT PRN ×2 (11:55→17:16)
--- NOTE | 2019-04-12 15:30 | NUR ---
WOUND CARE DONE, PT TOLERATED WELL.
[2019-04-12 15:42] VITALS: BP_SYST 141
--- NOTE | 2019-04-12 18:45 | NUR ---
D/C Patient Patient given medication reconciliation form and D/C instructions. Exit Care provided. Patient verbalized understanding. MD discussed with patient the results and treatment provided. Ambulatory with steady gait for discharge to home. Patient in stable condition, ID band removed. IV catheter removed, intact and dressing applied, no active bleeding. No Rx given. Given list of patient's hospital medications to be continued in the facility. Patient on stable condition the whole shift and on time of discharge/ pickup. Patient educated on pain management. All belongings sent with patient.
== END 2019-04-12 18:40 | DRG 698 ==
LOC: SED 23:01 → SMU 04-06 03:04
PROVIDERS: ADMIT Internal Medicine; ATTEND Internal Medicine
PROC: 0T2BX0Z Change Drainage Device in Bladder, External Approach (ICD-10-PCS; principal; 2019-04-07)
DX: T83.010A Breakdown (mechanical) of cystostomy catheter, initial encounter (principal); E43 Unspecified severe protein-calorie malnutrition; N39.0 Urinary tract infection, site not specified; G82.20 Paraplegia, unspecified; Z68.41 Body mass index [BMI] 40.0-44.9, adult; T83.030A Leakage of cystostomy catheter, initial encounter; E11.9 Type 2 diabetes mellitus without complications; I10 Essential (primary) hypertension; N31.9 Neuromuscular dysfunction of bladder, unspecified; Y83.8 Other surgical procedures as the cause of abnormal reaction of the patient, or of later complication, without mention of misadventure at the time of the procedure; E66.9 Obesity, unspecified; Z86.12 Personal history of poliomyelitis; Z88.0 Allergy status to penicillin; Z91.013 Allergy to seafood; Z88.8 Allergy status to other drugs, medicaments and biological substances; Z91.018 Allergy to other foods; Z79.82 Long term (current) use of aspirin; Z79.899 Other long term (current) drug therapy; Y92.89 Other specified places as the place of occurrence of the external cause
CPT/HCPCS: 36415; 71045; 80053; 80170-TC; 81000-TC; 82962; 83605; 84484; 85025; 85610-TC; 85730-TC; 87040-TC; 87081; 87086; 87186-TC; 93005; 96365; 96375; 99285; J0744; J1580; J1815; J1885; J1956; J2270

== ENCOUNTER 2023-02-04 23:14 | Inpatient (IN) | payer OTHER, MEDICAID ==
[~2023-02-04] VITALS: Ht 180.3 cm; Wt 129.9 kg
[2023-02-04 23:14] VITALS: BP_SYST 89; PULSE 114; RESP 18; TEMP 98.2; O2SAT 98
[~2023-02-04 23:14] MED LIST: ACET325T53 PO; AMIN30LI2 PO; ASA81 PO; BACL20TA PO; CARV12.548 PO; CRAN450C PO; GLIP10TA3 PO; GLUCOSE GEL PO; INSU100I4 SQ; INSU100V11 SQ; LIP20 PO; MELA3TAB41 PO; METF1000 PO; MOM PO; MULT-1117 PO; NEU300 PO; OXYB-55 PO; SSREG SUBCUT
[2023-02-05 00:06] LABS: MEAN CORPUSCULAR HEMOGLOBIN 32 pg (27-31); MEAN CORPUSCULAR HGB CONC 33 % (32-36); NEUTROPHILS # (AUTO) 29.5 K/uL (1.8-7.7)
[2023-02-05 00:08] LABS: BASOPHILS # (AUTO) 0.1 K/uL (0.0-0.2); BASOPHILS % (AUTO) 0.2 % (0.0-2.0); HEMATOCRIT 39.1 % (36-54); HEMOGLOBIN 12.8 g/dL (14.0-18.0); LYMPHOCYTES # (AUTO) 0.4 K/uL (1.0-5.5); LYMPHOCYTES % (AUTO) 1.2 % (20.5-51.5); MEAN CORPUSCULAR VOLUME 98 fL (79.0-98.0); MONOCYTES # (AUTO) 0.4 K/uL (0.0-1.0); MONOCYTES % (AUTO) 1.3 % (1.7-9.3); NEUTROPHILS % (AUTO) 97.3 % (40.0-70.0); PLATELET COUNT (AUTO) 369 K/uL (130-430); RED BLOOD CELL COUNT(AUTO) 4.01 MIL/uL (4.2-6.2)
[2023-02-05 00:23] LABS: WHITE BLOOD COUNT (AUTO) 30.3 K/uL (4.8-10.8)
[2023-02-05] MEDS ORDERED: TRAM50TA2 PO (00:43)
[2023-02-05 00:51] LABS: ALBUMIN 2.2 g/dL (3.4-4.8); CALCIUM 8.4 mg/dL (8.4-11.0); CREATININE 1.78 mg/dL (0.55-1.30); TOTAL BILIRUBIN 0.2 mg/dL (0.0-1.0); TOTAL PROTEIN, SERUM 8.1 g/dL (6.4-8.3)
[2023-02-05 00:59] LABS: POTASSIUM 2.7 mmol/L (3.5-5.1)
[2023-02-05] MEDS ORDERED: cefTRIAXone 1 GM IVPB PREMIX 50 ML IV ONE (01:30)
[2023-02-05] MEDS ORDERED: KCL 20 mEq in 100 mL (PREMIX) 100 ML IV ONE (01:30)
[2023-02-05] MEDS ORDERED: INSULIN REGULAR, HUMAN 100 UNITS/ML, 3 ML VIAL IVP ONE (01:30)
[2023-02-05] MEDS ORDERED: NACL 0.9% 1,000 ML IV ONE ×2 (01:30→03:30)
[2023-02-05] MEDS ORDERED: INSULIN REGULAR, HUMAN 10 UNITS/0.1 ML, 3 ML VIAL ONE (01:39)
[2023-02-05 02:31] LABS: CLARITY/URINE TURBID (CLEAR); COLOR,URINE BROWN (YELLOW); PH,URINE 7.5 (5.0-8.0)
[2023-02-05 02:32] LABS: BILIRUBIN,URINE NEGATIVE (NEGATIVE); BLOOD, URINE 3+ (NEGATIVE); GLUCOSE,URINE 3+ (NEGATIVE); KETONES,URINE 1+ (NEGATIVE); LEUKOCYTE ESTERASE ,URINE 2+ (NEGATIVE); NITRITE, URINE NEGATIVE (NEGATIVE); PROTEIN URINE 3+ (NEGATIVE); UROBILINOGEN,URINE 0.2 (0.2-1.0)
[2023-02-05 02:35] LABS: BACTERIA,URINE MODERATE /HPF (None Seen); WBC,URINE >100 /HPF (0-3)
[2023-02-05] MEDS ORDERED: ACETAMINOPHEN 325 MG TABLET PO PRN ×2 (03:30→11:15)
[2023-02-05] MEDS ORDERED: INSULIN REGULAR, HUMAN 100 UNITS/ML, 3 ML VIAL SUBCUT SCH (07:00)
[2023-02-05 07:55] VITALS: BP_SYST 120; PULSE 93; RESP 18; TEMP 99.5; O2SAT 95
[2023-02-05 08:00] VITALS: BP_SYST 120; PULSE 93; RESP 18; TEMP 99.5; O2SAT 95
[2023-02-05] MEDS ORDERED: BACLOFEN 10 MG TABLET PO PRN (09:45)
[2023-02-05] MEDS ORDERED: ACETAMINOPHEN 325 MG TABLET PO SCH (09:45)
[2023-02-05] MEDS ORDERED: OXYBUTYNIN CHLORIDE 5 MG XL TAB PO SCH (09:45)
[2023-02-05 10:04] LABS: BASOPHILS # (AUTO) 0.1 K/uL (0.0-0.2); BASOPHILS % (AUTO) 0.2 % (0.0-2.0); HEMATOCRIT 35.4 % (36-54); HEMOGLOBIN 11.7 g/dL (14.0-18.0); LYMPHOCYTES # (AUTO) 1.3 K/uL (1.0-5.5); LYMPHOCYTES % (AUTO) 3.9 % (20.5-51.5); MEAN CORPUSCULAR HEMOGLOBIN 32 pg (27-31); MEAN CORPUSCULAR HGB CONC 33 % (32-36); MEAN CORPUSCULAR VOLUME 96 fL (79.0-98.0); MONOCYTES # (AUTO) 0.9 K/uL (0.0-1.0); MONOCYTES % (AUTO) 2.7 % (1.7-9.3); NEUTROPHILS # (AUTO) 31.8 K/uL (1.8-7.7); NEUTROPHILS % (AUTO) 93.2 % (40.0-70.0); PLATELET COUNT (AUTO) 330 K/uL (130-430); RED BLOOD CELL COUNT(AUTO) 3.68 MIL/uL (4.2-6.2); RED CELL DISTRIBUTION WIDTH 13.8 % (9.0-15.0)
[2023-02-05 10:08] LABS: WHITE BLOOD COUNT (AUTO) 34.2 K/uL (4.8-10.8)
[2023-02-05 10:22] LABS: CALCIUM 8.2 mg/dL (8.4-11.0); CREATININE 1.33 mg/dL (0.55-1.30); POTASSIUM 3.2 mmol/L (3.5-5.1)
[2023-02-05] MEDS ORDERED: INSULIN GLARGINE 100 UNITS/ML, 10 ML VIAL SQ ONE (10:30)
[2023-02-05] MEDS ORDERED: ASPIRIN 81 MG TAB.CHEW PO ONE (10:30)
[2023-02-05] MEDS ORDERED: DEXTROSE 50% JECT 50 ML DISP.SYRIN IVP PRN (10:45)
[2023-02-05] MEDS ORDERED: INSULIN REGULAR, HUMAN 100 UNITS/ML, 3 ML VIAL (humuLIN R) SUBCUT PRN (10:45)
[2023-02-05] MEDS ORDERED: CARVEDILOL 12.5 MG TABLET (COREG) PO ONE (10:45)
[2023-02-05] MEDS ORDERED: POTASSIUM CHLORIDE 40 MEQ in D5W 250 ML IV ONE (11:00)
[2023-02-05] MEDS ORDERED: GABAPENTIN 300 MG CAPSULE PO ONE (11:00)
[2023-02-05] MEDS ORDERED: oxyBUTYnin chloride 5 MG TABLET PO ONE (11:15)
[2023-02-05] MEDS: INSULIN REGULAR, HUMAN 100 UNITS/ML, 3 ML VIAL (humuLIN R) SUBCUT PRN ×3 (11:39→21:05)
[2023-02-05] MEDS: CEFEPIME 2 GM in D5W 100 ML IV SCH (11:41)
[2023-02-05 12:00] VITALS: BP_SYST 130; PULSE 94; RESP 18; TEMP 98.4; O2SAT 98
[2023-02-05] MEDS ORDERED: PIPERACILLIN/TAZOBACTAM 2.25 GM in NS 50 ML IV SCH (12:00)
[2023-02-05] MEDS: GABAPENTIN 300 MG CAPSULE PO SCH ×2 (15:00→20:58)
[2023-02-05 16:00] VITALS: BP_SYST 125; PULSE 96; RESP 18; TEMP 99.1; O2SAT 96
[2023-02-05] MEDS ORDERED: INSULIN REGULAR, HUMAN 100 UNITS/ML, 3 ML VIAL SUBCUT ONE ×2 (19:00→21:30)
[2023-02-05 20:45] VITALS: BP_SYST 123; PULSE 94; RESP 20; TEMP 97.9; O2SAT 96
[2023-02-05] MEDS: oxyBUTYnin chloride 5 MG TABLET PO SCH (20:58)
[2023-02-05] MEDS: ATORVASTATIN 20 MG TABLET PO SCH (20:59)
[2023-02-05 21:00] VITALS: O2SAT 96
[2023-02-05] MEDS ORDERED: INSULIN GLARGINE 100 UNITS/ML, 10 ML VIAL SQ SCH (21:00)
[2023-02-05] MEDS: CARVEDILOL 12.5 MG TABLET (COREG) PO SCH (21:00)
[2023-02-05] MEDS: MELATONIN 3 MG TABLET PO SCH (21:08)
[2023-02-05] MEDS: traMADol HCL HCL 50 MG TABLET (ULTRAM) PO PRN (23:25)
[2023-02-06 00:22] VITALS: BP_SYST 123; PULSE 86; RESP 18; TEMP 97.1; O2SAT 94
[2023-02-06 06:31] LABS: BASOPHILS # (AUTO) 0.1 K/uL (0.0-0.2); BASOPHILS % (AUTO) 0.5 % (0.0-2.0); EOSINOPHILS # (AUTO) 0.1 K/uL (0.0-0.4); EOSINOPHILS % (AUTO) 0.4 % (0.0-4.0); HEMATOCRIT 33.7 % (36-54); HEMOGLOBIN 11.3 g/dL (14.0-18.0); LYMPHOCYTES # (AUTO) 1.2 K/uL (1.0-5.5); LYMPHOCYTES % (AUTO) 5.6 % (20.5-51.5); MEAN CORPUSCULAR HEMOGLOBIN 32 pg (27-31); MEAN CORPUSCULAR HGB CONC 34 % (32-36); MEAN CORPUSCULAR VOLUME 96 fL (79.0-98.0); MONOCYTES % (AUTO) 4.3 % (1.7-9.3); NEUTROPHILS # (AUTO) 19.7 K/uL (1.8-7.7); NEUTROPHILS % (AUTO) 89.2 % (40.0-70.0); PLATELET COUNT (AUTO) 308 K/uL (130-430); RED CELL DISTRIBUTION WIDTH 13.8 % (9.0-15.0); WHITE BLOOD COUNT (AUTO) 22.1 K/uL (4.8-10.8)
[2023-02-06] MEDS: INSULIN REGULAR, HUMAN 100 UNITS/ML, 3 ML VIAL (humuLIN R) SUBCUT PRN ×4 (06:42→21:36)
[2023-02-06 07:03] LABS: ALBUMIN 1.9 g/dL (3.4-4.8); CALCIUM 8.3 mg/dL (8.4-11.0); CREATININE 1.29 mg/dL (0.55-1.30); POTASSIUM 3.3 mmol/L (3.5-5.1); TOTAL BILIRUBIN 0.3 mg/dL (0.0-1.0); TOTAL PROTEIN, SERUM 7.5 g/dL (6.4-8.3)
[2023-02-06 08:00] VITALS: BP_SYST 96; PULSE 60; RESP 18; TEMP 96.1; O2SAT 100
[2023-02-06] MEDS ORDERED: NON-FORMULARY MEDICATION (Amino Acids/Protein Hydrolys (Pro-Stat Liquid) 30 ML) PO SCH (09:00)
[2023-02-06] MEDS: CARVEDILOL 12.5 MG TABLET (COREG) PO SCH ×2 (09:00→21:29)
[2023-02-06] MEDS: ASPIRIN 81 MG TAB.CHEW PO SCH (09:33)
[2023-02-06] MEDS: MULTIVITAMINS TAB 1 TABLET PO SCH (09:33)
[2023-02-06] MEDS: GABAPENTIN 300 MG CAPSULE PO SCH ×3 (09:34→21:13)
[2023-02-06] MEDS: oxyBUTYnin chloride 5 MG TABLET PO SCH ×2 (09:34→21:14)
[2023-02-06] MEDS: INSULIN GLARGINE 100 UNITS/ML, 10 ML VIAL SQ SCH ×2 (09:37→21:33)
[2023-02-06 11:13] LABS: CALCIUM 7.9 mg/dL (8.4-11.0); CREATININE 1.34 mg/dL (0.55-1.30); POTASSIUM 3.9 mmol/L (3.5-5.1)
[2023-02-06] MEDS: CEFEPIME 2 GM in D5W 100 ML IV SCH (11:21)
[2023-02-06 12:00] VITALS: BP_SYST 139; PULSE 85; RESP 18; TEMP 98; O2SAT 98
[2023-02-06] MEDS: NACL 0.9% 1,000 ML IV SCH (15:26)
[2023-02-06 16:00] VITALS: BP_SYST 130; PULSE 86; RESP 20; TEMP 98.1; O2SAT 98
[2023-02-06] MEDS: traMADol HCL HCL 50 MG TABLET (ULTRAM) PO PRN (17:44)
[2023-02-06] MEDS: VANCOMYCIN HCL 1,000 MG in NS 250 ML IV SCH (21:13)
[2023-02-06] MEDS: MELATONIN 3 MG TABLET PO SCH (21:16)
[2023-02-06] MEDS: ATORVASTATIN 20 MG TABLET PO SCH (21:17)
[2023-02-06 22:00] VITALS: O2SAT 96
[2023-02-07] VITALS (8 sets, daily range): BP systolic 112–143; PULSE 79–118; RESP 16–18; TEMP 97–98.6; O2SAT 93–98
[2023-02-07] MEDS: NACL 0.9% 1,000 ML IV SCH ×3 (06:34→18:00)
[2023-02-07] MEDS: INSULIN REGULAR, HUMAN 100 UNITS/ML, 3 ML VIAL (humuLIN R) SUBCUT PRN ×3 (06:42→17:52)
[2023-02-07 07:30] LABS: BASOPHILS # (AUTO) 0.1 K/uL (0.0-0.2); BASOPHILS % (AUTO) 0.6 % (0.0-2.0); EOSINOPHILS # (AUTO) 0.1 K/uL (0.0-0.4); EOSINOPHILS % (AUTO) 0.3 % (0.0-4.0); HEMATOCRIT 35.1 % (36-54); HEMOGLOBIN 11.5 g/dL (14.0-18.0); LYMPHOCYTES # (AUTO) 1.3 K/uL (1.0-5.5); LYMPHOCYTES % (AUTO) 8.8 % (20.5-51.5); MEAN CORPUSCULAR HEMOGLOBIN 31 pg (27-31); MEAN CORPUSCULAR HGB CONC 33 % (32-36); MEAN CORPUSCULAR VOLUME 96 fL (79.0-98.0); MONOCYTES % (AUTO) 6.4 % (1.7-9.3); NEUTROPHILS # (AUTO) 12.5 K/uL (1.8-7.7); NEUTROPHILS % (AUTO) 83.9 % (40.0-70.0); PLATELET COUNT (AUTO) 287 K/uL (130-430); RED BLOOD CELL COUNT(AUTO) 3.67 MIL/uL (4.2-6.2); WHITE BLOOD COUNT (AUTO) 14.9 K/uL (4.8-10.8)
[2023-02-07 08:11] LABS: ALBUMIN 1.9 g/dL (3.4-4.8); CALCIUM 8.1 mg/dL (8.4-11.0); CREATININE 1.24 mg/dL (0.55-1.30); POTASSIUM 3.4 mmol/L (3.5-5.1); TOTAL BILIRUBIN 0.3 mg/dL (0.0-1.0); TOTAL PROTEIN, SERUM 7.3 g/dL (6.4-8.3)
[2023-02-07] MEDS: VANCOMYCIN HCL 1,000 MG in NS 250 ML IV SCH ×2 (08:59→22:46)
[2023-02-07] MEDS: ASPIRIN 81 MG TAB.CHEW PO SCH (10:13)
[2023-02-07] MEDS: MULTIVITAMINS TAB 1 TABLET PO SCH (10:13)
[2023-02-07] MEDS: oxyBUTYnin chloride 5 MG TABLET PO SCH ×2 (10:14→22:44)
[2023-02-07] MEDS: CARVEDILOL 12.5 MG TABLET (COREG) PO SCH ×2 (10:14→22:45)
[2023-02-07] MEDS: GABAPENTIN 300 MG CAPSULE PO SCH ×3 (10:15→22:44)
[2023-02-07] MEDS: INSULIN GLARGINE 100 UNITS/ML, 10 ML VIAL SQ SCH ×2 (10:30→22:52)
[2023-02-07] MEDS: CEFEPIME 2 GM in D5W 100 ML IV SCH (11:49)
[2023-02-07] MEDS ORDERED: POTASSIUM CHLORIDE 20 MEQ TAB.PRT.SR PO ONE (13:45)
[2023-02-07] MEDS ORDERED: TAMSULOSIN HCL 0.4 MG CAP PO ONE (15:30)
[2023-02-07] MEDS: MELATONIN 3 MG TABLET PO SCH (21:00)
[2023-02-07] MEDS: MUPIROCIN 2% TOPICAL OINTMENT 22 GM NS SCH (21:00)
[2023-02-07] MEDS ORDERED: MUPIROCIN 1 GM OIN.PF.APP NS SCH (21:00)
[2023-02-07] MEDS: ATORVASTATIN 20 MG TABLET PO SCH (22:45)
[2023-02-08] VITALS (20 sets, daily range): BP systolic 90–173; PULSE 79–106; RESP 7–22; TEMP 97.8–99; O2SAT 91–98
[2023-02-08] MEDS: NACL 0.9% 1,000 ML IV SCH ×6 (03:14→21:28)
[2023-02-08] MEDS: INSULIN REGULAR, HUMAN 100 UNITS/ML, 3 ML VIAL (humuLIN R) SUBCUT PRN ×4 (03:56→23:14)
[2023-02-08 05:25] LABS: BASOPHILS % (AUTO) 0.1 % (0.0-2.0); EOSINOPHILS # (AUTO) 0.1 K/uL (0.0-0.4); EOSINOPHILS % (AUTO) 0.2 % (0.0-4.0); HEMATOCRIT 35.1 % (36-54); HEMOGLOBIN 11.2 g/dL (14.0-18.0); LYMPHOCYTES # (AUTO) 0.3 K/uL (1.0-5.5); MEAN CORPUSCULAR HEMOGLOBIN 31 pg (27-31); MEAN CORPUSCULAR HGB CONC 32 % (32-36); MEAN CORPUSCULAR VOLUME 95 fL (79.0-98.0); MONOCYTES # (AUTO) 0.6 K/uL (0.0-1.0); MONOCYTES % (AUTO) 1.9 % (1.7-9.3); NEUTROPHILS # (AUTO) 32.4 K/uL (1.8-7.7); NEUTROPHILS % (AUTO) 96.8 % (40.0-70.0); PLATELET COUNT (AUTO) 244 K/uL (130-430); RED BLOOD CELL COUNT(AUTO) 3.68 MIL/uL (4.2-6.2); RED CELL DISTRIBUTION WIDTH 13.9 % (9.0-15.0)
[2023-02-08 05:30] LABS: WHITE BLOOD COUNT (AUTO) 33.5 K/uL (4.8-10.8)
[2023-02-08 05:43] LABS: CALCIUM 7.9 mg/dL (8.4-11.0); CREATININE 1.69 mg/dL (0.55-1.30); POTASSIUM 3.5 mmol/L (3.5-5.1)
[2023-02-08] MEDS ORDERED: NOREPINEPHRINE BITARTRATE 8 MG in NS 242 ML IV PRN (06:15)
[2023-02-08 06:33] LABS: BLOOD GAS BASE EXCESS -3.2 mmol/L (-3.0-3.0); BLOOD GAS HCO3 22.2 mmol/L (21.0-27.0); BLOOD GAS PH 7.351 (7.350-7.450); BLOOD GAS PO2 69.2 mmHg (75.0-100.0)
[2023-02-08 06:34] LABS: ABG O2 SAT% ESTIMATE 93.1 % (94.0-100.0); ALLEN'S TEST YES (P)
[2023-02-08] MEDS: MILK OF MAGNESIA 30 ML UDC PO SCH ×3 (09:00→15:37)
[2023-02-08 09:30] LABS: INR 1.1 (0.80-1.20); PROTHROMBIN TIME 11.4 SECS (9.5-12.5)
[2023-02-08] MEDS: metroNIDAZOLE 500 mg/NS 100 ML IV SCH ×3 (09:58→21:19)
[2023-02-08] MEDS: INSULIN GLARGINE 100 UNITS/ML, 10 ML VIAL SQ SCH ×2 (10:04→21:21)
[2023-02-08] MEDS: TAMSULOSIN HCL 0.4 MG CAP PO SCH (11:15)
[2023-02-08] MEDS: VANCOMYCIN HCL 1,000 MG in NS 250 ML IV SCH ×2 (11:15→21:18)
[2023-02-08] MEDS: MULTIVITAMINS TAB 1 TABLET PO SCH (11:16)
[2023-02-08] MEDS: ASPIRIN 81 MG TAB.CHEW PO SCH (11:16)
[2023-02-08] MEDS: oxyBUTYnin chloride 5 MG TABLET PO SCH ×2 (11:16→21:19)
[2023-02-08] MEDS: CEFEPIME 2 GM in D5W 100 ML IV SCH (11:18)
[2023-02-08] MEDS: MUPIROCIN 2% TOPICAL OINTMENT 22 GM NS SCH ×2 (11:24→21:19)
[2023-02-08] MEDS: FLUCONAZOLE 200 mg/ NS 100 ML IV SCH (17:40)
[2023-02-08] MEDS: MELATONIN 3 MG TABLET PO SCH (21:00)
[2023-02-08] MEDS: ATORVASTATIN 20 MG TABLET PO SCH (21:20)
[2023-02-09] VITALS (17 sets, daily range): BP systolic 100–150; PULSE 74–101; RESP 10–23; TEMP 97–98.7; O2SAT 94–99
[2023-02-09 05:31] LABS: BASOPHILS # (AUTO) 0.1 K/uL (0.0-0.2); BASOPHILS % (AUTO) 0.4 % (0.0-2.0); EOSINOPHILS # (AUTO) 0.1 K/uL (0.0-0.4); EOSINOPHILS % (AUTO) 0.5 % (0.0-4.0); HEMATOCRIT 32.7 % (36-54); HEMOGLOBIN 10.7 g/dL (14.0-18.0); LYMPHOCYTES % (AUTO) 4.4 % (20.5-51.5); MEAN CORPUSCULAR HEMOGLOBIN 31 pg (27-31); MEAN CORPUSCULAR HGB CONC 33 % (32-36); MEAN CORPUSCULAR VOLUME 95 fL (79.0-98.0); MONOCYTES # (AUTO) 0.7 K/uL (0.0-1.0); MONOCYTES % (AUTO) 3.2 % (1.7-9.3); NEUTROPHILS # (AUTO) 21.1 K/uL (1.8-7.7); NEUTROPHILS % (AUTO) 91.5 % (40.0-70.0); PLATELET COUNT (AUTO) 236 K/uL (130-430); RED BLOOD CELL COUNT(AUTO) 3.43 MIL/uL (4.2-6.2)
[2023-02-09 06:01] LABS: ALBUMIN 1.5 g/dL (3.4-4.8); CALCIUM 7.5 mg/dL (8.4-11.0); CREATININE 1.24 mg/dL (0.55-1.30); TOTAL BILIRUBIN 0.2 mg/dL (0.0-1.0); TOTAL PROTEIN, SERUM 6.5 g/dL (6.4-8.3)
[2023-02-09 06:06] LABS: POTASSIUM 2.8 mmol/L (3.5-5.1)
[2023-02-09] MEDS ORDERED: POTASSIUM CHLORIDE 40 MEQ in NS 250 ML IV ONE (06:15)
[2023-02-09] MEDS: metroNIDAZOLE 500 mg/NS 100 ML IV SCH ×3 (06:34→22:06)
[2023-02-09] MEDS: NACL 0.9% 1,000 ML IV SCH ×3 (06:36→22:05)
[2023-02-09] MEDS: INSULIN REGULAR, HUMAN 100 UNITS/ML, 3 ML VIAL (humuLIN R) SUBCUT PRN ×3 (06:45→21:56)
[2023-02-09] MEDS: oxyBUTYnin chloride 5 MG TABLET PO SCH ×2 (08:40→22:12)
[2023-02-09] MEDS: VANCOMYCIN HCL 1,000 MG in NS 250 ML IV SCH ×2 (08:40→22:06)
[2023-02-09] MEDS: TAMSULOSIN HCL 0.4 MG CAP PO SCH (08:41)
[2023-02-09] MEDS: MULTIVITAMINS TAB 1 TABLET PO SCH (08:41)
[2023-02-09] MEDS: MUPIROCIN 2% TOPICAL OINTMENT 22 GM NS SCH ×2 (08:41→21:00)
[2023-02-09] MEDS: ASPIRIN 81 MG TAB.CHEW PO SCH (08:41)
[2023-02-09] MEDS: INSULIN GLARGINE 100 UNITS/ML, 10 ML VIAL SQ SCH ×2 (09:08→21:58)
[2023-02-09] MEDS: CEFEPIME 2 GM in D5W 100 ML IV SCH (11:20)
[2023-02-09] MEDS: FLUCONAZOLE 200 mg/ NS 100 ML IV SCH (12:27)
[2023-02-09] MEDS: traMADol HCL HCL 50 MG TABLET (ULTRAM) PO PRN (14:03)
[2023-02-09] MEDS ORDERED: cloNIDine HCL 0.2 MG TABLET PO ONE (14:45)
[2023-02-09] MEDS ORDERED: HEPARIN SODIUM,PORCINE 5,000 UNITS/ML VIAL SUBCUT ONE (15:15)
[2023-02-09] MEDS: HEPARIN SODIUM,PORCINE 5,000 UNITS/ML VIAL SUBCUT SCH (21:00)
[2023-02-09] MEDS: ATORVASTATIN 20 MG TABLET PO SCH (22:12)
[2023-02-09] MEDS: MELATONIN 3 MG TABLET PO SCH (22:16)
[2023-02-10 00:32] VITALS: BP_SYST 125; PULSE 87; RESP 19; TEMP 97.4; O2SAT 95
[2023-02-10] MEDS: NACL 0.9% 1,000 ML IV SCH ×4 (02:31→21:43)
[2023-02-10] MEDS: metroNIDAZOLE 500 mg/NS 100 ML IV SCH ×3 (05:24→21:38)
[2023-02-10] MEDS: INSULIN REGULAR, HUMAN 100 UNITS/ML, 3 ML VIAL (humuLIN R) SUBCUT PRN ×3 (05:33→21:46)
[2023-02-10 08:30] VITALS: O2SAT 95
[2023-02-10] MEDS: VANCOMYCIN HCL 1,000 MG in NS 250 ML IV SCH ×2 (08:55→21:37)
[2023-02-10] MEDS: oxyBUTYnin chloride 5 MG TABLET PO SCH ×2 (08:56→21:39)
[2023-02-10] MEDS: TAMSULOSIN HCL 0.4 MG CAP PO SCH (08:56)
[2023-02-10] MEDS: ASPIRIN 81 MG TAB.CHEW PO SCH (08:56)
[2023-02-10] MEDS: HEPARIN SODIUM,PORCINE 5,000 UNITS/ML VIAL SUBCUT SCH ×2 (08:57→21:52)
[2023-02-10] MEDS: MULTIVITAMINS TAB 1 TABLET PO SCH (08:57)
[2023-02-10] MEDS: INSULIN GLARGINE 100 UNITS/ML, 10 ML VIAL SQ SCH ×2 (08:57→21:50)
[2023-02-10] MEDS: MUPIROCIN 2% TOPICAL OINTMENT 22 GM NS SCH ×2 (09:22→21:39)
[2023-02-10 11:41] VITALS: BP_SYST 148; PULSE 94; RESP 18; TEMP 97; O2SAT 95
[2023-02-10] MEDS: CEFEPIME 2 GM in D5W 100 ML IV SCH (12:20)
[2023-02-10] MEDS: FLUCONAZOLE 200 mg/ NS 100 ML IV SCH (16:00)
[2023-02-10 16:24] VITALS: BP_SYST 141; PULSE 90; RESP 18; TEMP 97.9; O2SAT 95
[2023-02-10 19:00] VITALS: BP_SYST 145; PULSE 92; RESP 16; TEMP 97.6; O2SAT 96
[2023-02-10 20:00] VITALS: BP_SYST 145; PULSE 92; RESP 16; TEMP 97.6; O2SAT 96
[2023-02-10] MEDS: MELATONIN 3 MG TABLET PO SCH (21:40)
[2023-02-10] MEDS: ATORVASTATIN 20 MG TABLET PO SCH (21:40)
[2023-02-11 01:16] VITALS: BP_SYST 170; PULSE 98; RESP 18; TEMP 97.6; O2SAT 98
[2023-02-11] MEDS: metroNIDAZOLE 500 mg/NS 100 ML IV SCH ×3 (05:45→21:26)
[2023-02-11 05:50] LABS: BASOPHILS # (AUTO) 0.1 K/uL (0.0-0.2); BASOPHILS % (AUTO) 0.5 % (0.0-2.0); EOSINOPHILS % (AUTO) 0.2 % (0.0-4.0); HEMATOCRIT 35.2 % (36-54); HEMOGLOBIN 11.5 g/dL (14.0-18.0); LYMPHOCYTES # (AUTO) 1.5 K/uL (1.0-5.5); LYMPHOCYTES % (AUTO) 6.6 % (20.5-51.5); MEAN CORPUSCULAR HEMOGLOBIN 31 pg (27-31); MEAN CORPUSCULAR HGB CONC 33 % (32-36); MEAN CORPUSCULAR VOLUME 96 fL (79.0-98.0); MONOCYTES # (AUTO) 1.1 K/uL (0.0-1.0); MONOCYTES % (AUTO) 4.8 % (1.7-9.3); NEUTROPHILS # (AUTO) 20.1 K/uL (1.8-7.7); NEUTROPHILS % (AUTO) 87.9 % (40.0-70.0); PLATELET COUNT (AUTO) 138 K/uL (130-430); RED BLOOD CELL COUNT(AUTO) 3.68 MIL/uL (4.2-6.2); RED CELL DISTRIBUTION WIDTH 14.1 % (9.0-15.0); WHITE BLOOD COUNT (AUTO) 22.8 K/uL (4.8-10.8)
[2023-02-11] MEDS: INSULIN REGULAR, HUMAN 100 UNITS/ML, 3 ML VIAL (humuLIN R) SUBCUT PRN ×4 (06:04→21:47)
[2023-02-11 06:31] LABS: ALBUMIN 1.5 g/dL (3.4-4.8); CALCIUM 7.6 mg/dL (8.4-11.0); CREATININE 1.19 mg/dL (0.55-1.30); TOTAL BILIRUBIN 0.3 mg/dL (0.0-1.0); TOTAL PROTEIN, SERUM 6.7 g/dL (6.4-8.3)
[2023-02-11 06:40] LABS: POTASSIUM 2.7 mmol/L (3.5-5.1)
[2023-02-11 08:00] VITALS: BP_SYST 164; PULSE 94; RESP 20; TEMP 96.1; O2SAT 96
[2023-02-11] MEDS ORDERED: POTASSIUM CHLORIDE 20 MEQ/PKT PACKET PO ONE (08:45)
[2023-02-11] MEDS: MILK OF MAGNESIA 30 ML UDC PO SCH (09:00)
[2023-02-11] MEDS: ASPIRIN 81 MG TAB.CHEW PO SCH (09:50)
[2023-02-11] MEDS: TAMSULOSIN HCL 0.4 MG CAP PO SCH (09:50)
[2023-02-11] MEDS: MULTIVITAMINS TAB 1 TABLET PO SCH (09:50)
[2023-02-11] MEDS: oxyBUTYnin chloride 5 MG TABLET PO SCH ×2 (09:51→21:25)
[2023-02-11] MEDS: HEPARIN SODIUM,PORCINE 5,000 UNITS/ML VIAL SUBCUT SCH ×2 (09:52→21:51)
[2023-02-11] MEDS: INSULIN GLARGINE 100 UNITS/ML, 10 ML VIAL SQ SCH ×2 (09:53→21:50)
[2023-02-11] MEDS: VANCOMYCIN HCL 1,000 MG in NS 250 ML IV SCH (10:01)
[2023-02-11] MEDS: MUPIROCIN 2% TOPICAL OINTMENT 22 GM NS SCH ×2 (10:02→21:16)
[2023-02-11 12:00] VITALS: BP_SYST 184; PULSE 95; RESP 18; TEMP 97; O2SAT 97
[2023-02-11] MEDS: traMADol HCL HCL 50 MG TABLET (ULTRAM) PO PRN (13:42)
[2023-02-11] MEDS: MEROPENEM 1 GM in NS 100 ML IV SCH ×2 (13:44→21:26)
[2023-02-11 16:00] VITALS: BP_SYST 182; PULSE 99; RESP 18; TEMP 97.5; O2SAT 97
[2023-02-11] MEDS: FLUCONAZOLE 200 mg/ NS 100 ML IV SCH (16:43)
[2023-02-11] MEDS ORDERED: LACTULOSE 20 GM/30 ML UDC PO ONE (17:15)
[2023-02-11] MEDS ORDERED: POTASSIUM CHLORIDE 40 MEQ in NS 250 ML IV ONE (18:00)
[2023-02-11 19:00] VITALS: BP_SYST 150; PULSE 96; RESP 20; TEMP 97.8; O2SAT 98
[2023-02-11 20:00] VITALS: BP_SYST 150; PULSE 96; RESP 20; TEMP 97.6; O2SAT 98
[2023-02-11] MEDS: NACL 0.9% 1,000 ML IV SCH (21:12)
[2023-02-11] MEDS: MELATONIN 3 MG TABLET PO SCH (21:25)
[2023-02-11] MEDS: ATORVASTATIN 20 MG TABLET PO SCH (21:25)
[2023-02-11] MEDS ORDERED: INSULIN Lispro 100 UNITS/ML, 3 ML VIAL (humaLOG) SUBCUT ONE (22:15)
[2023-02-12] VITALS: BP_SYST 167; PULSE 86; RESP 18; TEMP 97.2; O2SAT 98
[2023-02-12] MEDS: cloNIDine HCL 0.1 MG TABLET PO PRN (01:22)
[2023-02-12 04:35] LABS: BASOPHILS # (AUTO) 0.1 K/uL (0.0-0.2); BASOPHILS % (AUTO) 0.6 % (0.0-2.0); EOSINOPHILS # (AUTO) 0.1 K/uL (0.0-0.4); EOSINOPHILS % (AUTO) 0.5 % (0.0-4.0); HEMATOCRIT 36.4 % (36-54); HEMOGLOBIN 11.7 g/dL (14.0-18.0); LYMPHOCYTES # (AUTO) 1.6 K/uL (1.0-5.5); LYMPHOCYTES % (AUTO) 10.5 % (20.5-51.5); MEAN CORPUSCULAR HEMOGLOBIN 30 pg (27-31); MEAN CORPUSCULAR HGB CONC 32 % (32-36); MEAN CORPUSCULAR VOLUME 94 fL (79.0-98.0); MONOCYTES # (AUTO) 1.1 K/uL (0.0-1.0); MONOCYTES % (AUTO) 7.2 % (1.7-9.3); NEUTROPHILS # (AUTO) 12.7 K/uL (1.8-7.7); NEUTROPHILS % (AUTO) 81.2 % (40.0-70.0); PLATELET COUNT (AUTO) 150 K/uL (130-430); RED BLOOD CELL COUNT(AUTO) 3.86 MIL/uL (4.2-6.2); RED CELL DISTRIBUTION WIDTH 14.3 % (9.0-15.0); WHITE BLOOD COUNT (AUTO) 15.7 K/uL (4.8-10.8)
[2023-02-12 04:43] LABS: CALCIUM 7.6 mg/dL (8.4-11.0); CREATININE 1.21 mg/dL (0.55-1.30); POTASSIUM 3.4 mmol/L (3.5-5.1)
[2023-02-12] MEDS: metroNIDAZOLE 500 mg/NS 100 ML IV SCH ×3 (05:14→22:09)
[2023-02-12] MEDS: MEROPENEM 1 GM in NS 100 ML IV SCH ×3 (05:15→20:56)
[2023-02-12] MEDS: NACL 0.9% 1,000 ML IV SCH ×2 (05:16→15:48)
[2023-02-12] MEDS: INSULIN REGULAR, HUMAN 100 UNITS/ML, 3 ML VIAL (humuLIN R) SUBCUT PRN ×4 (05:55→20:57)
[2023-02-12 06:00] VITALS: BP_SYST 150; PULSE 91; RESP 16; TEMP 97.1; O2SAT 96
[2023-02-12 08:00] VITALS: BP_SYST 161; PULSE 82; RESP 20; TEMP 96.8; O2SAT 92
[2023-02-12] MEDS: oxyBUTYnin chloride 5 MG TABLET PO SCH ×2 (09:16→20:56)
[2023-02-12] MEDS: ASPIRIN 81 MG TAB.CHEW PO SCH (09:16)
[2023-02-12] MEDS: MILK OF MAGNESIA 30 ML UDC PO SCH (09:16)
[2023-02-12] MEDS: MULTIVITAMINS TAB 1 TABLET PO SCH (09:16)
[2023-02-12] MEDS: TAMSULOSIN HCL 0.4 MG CAP PO SCH (09:19)
[2023-02-12] MEDS: HEPARIN SODIUM,PORCINE 5,000 UNITS/ML VIAL SUBCUT SCH ×2 (09:21→20:56)
[2023-02-12] MEDS: MUPIROCIN 2% TOPICAL OINTMENT 22 GM NS SCH (09:22)
[2023-02-12] MEDS: INSULIN GLARGINE 100 UNITS/ML, 10 ML VIAL SUBCUT SCH ×2 (09:28→20:58)
[2023-02-12] MEDS: FLUCONAZOLE 200 mg/ NS 100 ML IV SCH (16:58)
[2023-02-12] MEDS ORDERED: POTASSIUM CHLORIDE 20 MEQ/PKT PACKET PO ONE (17:15)
[2023-02-12 17:23] VITALS: BP_SYST 133; PULSE 83; RESP 18; TEMP 97.8; O2SAT 97
[2023-02-12 20:00] VITALS: BP_SYST 140; PULSE 87; RESP 18; TEMP 97.4; O2SAT 98
[2023-02-12] MEDS: ATORVASTATIN 20 MG TABLET PO SCH (20:56)
[2023-02-12] MEDS: MELATONIN 3 MG TABLET PO SCH (20:57)
[2023-02-13 00:11] VITALS: BP_SYST 141; PULSE 79; RESP 19; TEMP 97.3; O2SAT 95
[2023-02-13] MEDS: MEROPENEM 1 GM in NS 100 ML IV SCH ×3 (05:10→21:27)
[2023-02-13] MEDS: metroNIDAZOLE 500 mg/NS 100 ML IV SCH ×3 (06:03→22:38)
[2023-02-13] MEDS: INSULIN REGULAR, HUMAN 100 UNITS/ML, 3 ML VIAL (humuLIN R) SUBCUT PRN ×3 (06:03→21:30)
[2023-02-13 08:20] VITALS: TEMP 97.8
[2023-02-13 08:22] VITALS: BP_SYST 162; PULSE 89; RESP 18; O2SAT 96
[2023-02-13] MEDS: MULTIVITAMINS TAB 1 TABLET PO SCH (09:39)
[2023-02-13] MEDS: cloNIDine HCL 0.1 MG TABLET PO PRN (09:39)
[2023-02-13] MEDS: ASPIRIN 81 MG TAB.CHEW PO SCH (09:39)
[2023-02-13] MEDS: TAMSULOSIN HCL 0.4 MG CAP PO SCH (09:39)
[2023-02-13] MEDS: oxyBUTYnin chloride 5 MG TABLET PO SCH ×2 (09:40→21:25)
[2023-02-13] MEDS: HEPARIN SODIUM,PORCINE 5,000 UNITS/ML VIAL SUBCUT SCH ×2 (09:45→21:26)
[2023-02-13] MEDS: INSULIN GLARGINE 100 UNITS/ML, 10 ML VIAL SUBCUT SCH ×2 (09:48→21:28)
[2023-02-13 12:37] VITALS: BP_SYST 155; PULSE 82; RESP 19; TEMP 97.6; O2SAT 97
[2023-02-13] MEDS: NACL 0.9% 1,000 ML IV SCH ×2 (14:58→23:48)
[2023-02-13 16:00] VITALS: BP_SYST 154; PULSE 85; RESP 18; TEMP 97.7; O2SAT 97
[2023-02-13] MEDS: FLUCONAZOLE 200 mg/ NS 100 ML IV SCH (16:15)
[2023-02-13 20:00] VITALS: BP_SYST 154; PULSE 82; RESP 18; TEMP 97.2; O2SAT 95
[2023-02-13] MEDS: MELATONIN 3 MG TABLET PO SCH (21:25)
[2023-02-13] MEDS: ATORVASTATIN 20 MG TABLET PO SCH (21:25)
[2023-02-14] VITALS: BP_SYST 148; PULSE 87; RESP 18; TEMP 97.6; O2SAT 98
[2023-02-14] MEDS: MEROPENEM 1 GM in NS 100 ML IV SCH ×2 (05:13→11:10)
[2023-02-14] MEDS: metroNIDAZOLE 500 mg/NS 100 ML IV SCH ×2 (05:56→11:09)
[2023-02-14] MEDS: INSULIN REGULAR, HUMAN 100 UNITS/ML, 3 ML VIAL (humuLIN R) SUBCUT PRN (06:00)
[2023-02-14 06:53] LABS: BASOPHILS # (AUTO) 0.1 K/uL (0.0-0.2); EOSINOPHILS # (AUTO) 0.3 K/uL (0.0-0.4); EOSINOPHILS % (AUTO) 2.1 % (0.0-4.0); HEMATOCRIT 34.4 % (36-54); HEMOGLOBIN 11.2 g/dL (14.0-18.0); LYMPHOCYTES # (AUTO) 1.7 K/uL (1.0-5.5); LYMPHOCYTES % (AUTO) 14.4 % (20.5-51.5); MEAN CORPUSCULAR HEMOGLOBIN 31 pg (27-31); MEAN CORPUSCULAR HGB CONC 33 % (32-36); MEAN CORPUSCULAR VOLUME 94 fL (79.0-98.0); MONOCYTES # (AUTO) 0.8 K/uL (0.0-1.0); MONOCYTES % (AUTO) 6.7 % (1.7-9.3); NEUTROPHILS # (AUTO) 9.2 K/uL (1.8-7.7); NEUTROPHILS % (AUTO) 75.8 % (40.0-70.0); PLATELET COUNT (AUTO) 222 K/uL (130-430); RED BLOOD CELL COUNT(AUTO) 3.65 MIL/uL (4.2-6.2); RED CELL DISTRIBUTION WIDTH 13.8 % (9.0-15.0); WHITE BLOOD COUNT (AUTO) 12.1 K/uL (4.8-10.8)
[2023-02-14 08:00] VITALS: BP_SYST 162; PULSE 82; RESP 18; TEMP 97.2; O2SAT 98
[2023-02-14] MEDS: ASPIRIN 81 MG TAB.CHEW PO SCH (10:59)
[2023-02-14] MEDS: oxyBUTYnin chloride 5 MG TABLET PO SCH (11:00)
[2023-02-14] MEDS: INSULIN GLARGINE 100 UNITS/ML, 10 ML VIAL SUBCUT SCH (11:00)
[2023-02-14] MEDS: TAMSULOSIN HCL 0.4 MG CAP PO SCH (11:01)
[2023-02-14] MEDS: MULTIVITAMINS TAB 1 TABLET PO SCH (11:01)
[2023-02-14] MEDS: MILK OF MAGNESIA 30 ML UDC PO SCH (11:01)
[2023-02-14] MEDS: HEPARIN SODIUM,PORCINE 5,000 UNITS/ML VIAL SUBCUT SCH (11:03)
[2023-02-14] MEDS: FLUCONAZOLE 200 mg/ NS 100 ML IV SCH (11:09)
[2023-02-14] MEDS: NACL 0.9% 1,000 ML IV SCH (11:10)
[2023-02-14 12:00] VITALS: BP_SYST 150; PULSE 85; RESP 17; TEMP 97.4; O2SAT 97
[2023-02-14 12:26] LABS: INR 1.2 (0.80-1.20); PROTHROMBIN TIME 12.6 SECS (9.5-12.5)
[2023-02-14 16:57] VITALS: PULSE 81; RESP 20; TEMP 97; O2SAT 98
== END 2023-02-14 16:10 | DRG 872 ==
LOC: SED 23:14 → STU 02-05 03:24 → SMU 02-07 11:22 → SIC 02-08 06:24 → STU 02-09 15:52 → SMU 02-14 11:22
PROVIDERS: ADMIT Family Medicine; ATTEND Family Medicine
PROC: 05HY33Z Insertion of Infusion Device into Upper Vein, Percutaneous Approach (ICD-10-PCS; 2023-02-08)
PROC: 05HY33Z Insertion of Infusion Device into Upper Vein, Percutaneous Approach (ICD-10-PCS; principal; 2023-02-14)
DX: A41.9 Sepsis, unspecified organism (principal); N13.6 Pyonephrosis; E87.1 Hypo-osmolality and hyponatremia; N39.0 Urinary tract infection, site not specified; G82.20 Paraplegia, unspecified; E44.1 Mild protein-calorie malnutrition; E11.65 Type 2 diabetes mellitus with hyperglycemia; K21.9 Gastro-esophageal reflux disease without esophagitis; E78.5 Hyperlipidemia, unspecified; E87.6 Hypokalemia; E66.9 Obesity, unspecified; N31.9 Neuromuscular dysfunction of bladder, unspecified; Y83.8 Other surgical procedures as the cause of abnormal reaction of the patient, or of later complication, without mention of misadventure at the time of the procedure; Z88.0 Allergy status to penicillin; Z91.013 Allergy to seafood; Z91.018 Allergy to other foods; Z91.09 Other allergy status, other than to drugs and biological substances; Z79.899 Other long term (current) drug therapy; Z79.82 Long term (current) use of aspirin; Z79.4 Long term (current) use of insulin; Z74.01 Bed confinement status; Y92.89 Other specified places as the place of occurrence of the external cause; Z68.39 Body mass index [BMI] 39.0-39.9, adult; I12.9 Hypertensive chronic kidney disease with stage 1 through stage 4 chronic kidney disease, or unspecified chronic kidney disease; N18.9 Chronic kidney disease, unspecified; I48.91 Unspecified atrial fibrillation; E66.01 Morbid (severe) obesity due to excess calories; E11.22 Type 2 diabetes mellitus with diabetic chronic kidney disease
CPT/HCPCS: 36415; 36600; 71045; 74018; 76376; 76770; 80048; 80053; 80202; 81000; 82803; 82962; 83037; 83605; 83735; 83880; 84484; 85025; 85610-TC; 85730-TC; 87040; 87081; 87086; 87230-TC; 92610-GN; 93005; 93306; 99291; C1751; G0378; J0692; J0696; J1450; J1644; J1815; J2185; J2543; J3370; J3480; J3490; J7030; J7050; J7060